=== PATIENT | female | born 1965 | race Caucasian/White ===

== ENCOUNTER 2017-08-24 11:43 | Outpatient (CLI) | payer OTHER ==
--- NOTE | 2017-08-25 19:08 | Mammography Report ---
DIGITAL SCREENING MAMMOGRAM: 08/24/2017 CLINICAL INDICATION: A 52-year-old for screening. COMPARISON: 10/2015, 10/2013, 09/2010. TECHNIQUE: Routine CC and MLO projections were obtained of the breasts as well as bilateral laterall y exaggerated craniocaudal views. FINDINGS: The breasts again demonstrate heterogeneously dense fibroglandular parenchyma bilaterally. Coarse and punctate, typically benign calcifications are present. No suspicious masses, clustered microcalcifications, or regions of architectural distortion are identified. IMPRESSION: BENIGN FINDINGS. RECOMMENDATION: Routine annual screening unless otherwise clinically indicated. BI-RADS category 2, benign findings. STANDARD QUALIFYING STATEMENTS 1. This examination was reviewed with the aid of Computer-Aided Detection (CAD). 2. A negative or benign imaging report should not delay biopsy if clinically suspicious findings are present. Consider surgical consultation if warranted. More than 5% of cancers are not identified by i maging. 3. Dense breasts may obscure an underlying neoplasm. JOB #: [id number] EXT JOB #:[id number]
== END 2017-08-24 11:44 | disposition home or self-care (01) ==
LOC: DI 11:43
PROVIDERS: ATTEND Physician Assistant Medical
DX: Z12.31 Encounter for screening mammogram for malignant neoplasm of breast (principal)
CPT/HCPCS: 77067

== ENCOUNTER 2017-12-10 09:52 | Outpatient (CLI) | payer BC ==
[~2017-12-10 09:52] MED LIST: GADOBUTROL 10 MMOL/10 ML VIAL ONE
[2017-12-10] MEDS ORDERED: GADOBUTROL 10 MMOL/10 ML VIAL IVP ONE (11:01)
--- NOTE | 2017-12-10 13:54 | MRI Report ---
EXAM: MRI BRAIN WITHOUT AND WITH CONTRAST EXAM DATE: 12/10/2017 11:12 AM. CLINICAL HISTORY: Headache, decreased balance. Dizziness. COMPARISON: None. TECHNIQUE: Multiplanar, multisequence T1-weighted and fluid-sensitive MR sequences of the brain were performed. Sequences optimized for routine evaluation. Other: None. IV Contrast: 10 cc Gadavist given .. Findings: Relevant images are indicated (image number, series number). There is no acute or subacute ischemic change in the brain. Gradient echo imaging unremarkable. There is no hemorrhage, mass or midline shift. Basal cisterns, bilateral IACs, bilateral Meckel's caves ar e clear. Orbital contents negative. Paranasal sinuses, mastoid air cells demonstrate no significant f luid signal. There are normal expected vascular flow voids of the major arteries and veins. There are no suspicious marrow lesions. Mild scattered periventricular, subcortical white matter disease inclu ding small white matter disease abutting right atrium. Mild asymmetrical prominence of the right temp oral horn. Postcontrast imaging demonstrates no abnormal enhancement of the brain, meninges. Extraocu lar muscles, optic nerves, orbital apex, optic chiasm negative. Pituitary, infundibulum, mid brain, c raniocervical junction, limited evaluation upper cervical cord negative. Bilateral temporal lobes including appearance of the amygdala, hippocampus, parahippocampal gyrus matt ears unremarkable. Limited evaluation suprahyoid neck is unremarkable. Impressions: 1. No acute or subacute ischemic change. 2. Mild scattered nonspecific white matter disease, could be related to reported history of headaches . Also consider manifestation of chronic small vessel ischemic disease, correlate with any risk facto rs for the development of white matter disease including any history of diabetes, hypertension, hyper cholesterolemia. Post contrast imaging negative. 3. Some mild asymmetrical prominence of the right temporal horn compared with left however coronal im aging demonstrates unremarkable appearance of the bilateral hippocampus. Correlate closely with neuro logical exam findings. [facility] Referring Provider Line: [phone] SITE ID: [id number]
== END 2017-12-10 09:53 | disposition home or self-care (01) ==
LOC: DI 09:52
PROVIDERS: ATTEND Physician Assistant Medical
DX: R51 Headache (principal); R90.82 White matter disease, unspecified
CPT/HCPCS: 70553; A9585

== ENCOUNTER 2018-06-15 07:20 | Outpatient (CLI) | payer BC ==
[2018-06-15] MEDS ORDERED: IOPAMIDOL-300 100 ML VIAL ONE (07:23)
[2018-06-15] MEDS ORDERED: IOPAMIDOL-300 100 ML VIAL IVP ONE (08:04)
--- NOTE | 2018-06-15 15:19 | CT Report ---
Procedure Date: 06/15/2018 Accession Number: [id number] / [id number] Procedure: CT - Sinuses CPT Code: FULL RESULT: EXAM: CT SINUS EXAM DATE: 06/15/2018 08:11 AM. HISTORY: Sinus infections. COMPARISONS: None. TECHNIQUE: Routine multi-axial CT imaging performed through the sinuses. Iodinated IV contrast: None. Reconstructions: Coronal. In accordance with CT protocol optimization, one or more of the following dose reduction techniques were utilized for this exam: automated exposure control, adjustment of mA and/or KV based on patient size, or use of iterative reconstructive technique. FINDINGS: RIGHT Frontal: Normal. Ethmoid: Normal. Maxillary: Normal. Sphenoid: Normal. Drainage Pathways: The frontal recess, ostiomeatal complex and sphenoethmoidal recess are patent and normal. LEFT Frontal: Normal. Ethmoid: Normal. Maxillary: Minimal thickening of the mucosa along the medial and inferior left maxillary sinus. Sphenoid: Normal. Drainage Pathways: The frontal recess, ostiomeatal complex and sphenoethmoidal recess are patent and normal. Nasal Cavity: Normal. No mass or significant anatomic abnormality evident. Osseous Structures: No acute fracture or bony lesion. Mary bullosa are seen within both middle turbinates. There are nearly paradoxical middle turbinates. Orbits: Unremarkable. Other: Included portions and intracranial structures are unremarkable. Airways are clear. IMPRESSION: 1. Minimal left maxillary sinus disease. [facility]
--- NOTE | 2018-06-16 09:28 | CT Report ---
Procedure Date: 06/15/2018 Accession Number: [id number] / [id number] Procedure: CT - Chest W/ CPT Code: FULL RESULT: EXAM: CT CHEST EXAM DATE: 06/15/2018 08:11 AM. CLINICAL HISTORY: Dyspnea on exertion. COMPARISONS: Chest x-ray from 03/30/2018 and 06/02/2016. TECHNIQUE: Routine helical CT imaging was performed through the chest. IV contrast: 80 cc of Isovue-300. Reconstructions: Coronal and sagittal. In accordance with CT protocol optimization, one or more of the following dose reduction techniques were utilized for this exam: automated exposure control, adjustment of mA and/or KV based on patient size, or use of iterative reconstructive technique. FINDINGS: Lungs/Pleura: Elevation of both hemidiaphragms/low lung volumes with right middle and right lower lobe opacities likely atelectasis. No endobronchial obstruction. No pneumothorax. No parenchymal cavities or pleural effusions. No evidence of interstitial lung disease. Mediastinum: Heart size is normal. Visualized thyroid gland is unremarkable. No enlarged mediastinal or hilar lymph nodes are identified. Small hiatal hernia. Thoracic aorta is normal in caliber. No aneurysm. Bones: Degenerative changes of the thoracic spine. Right mid lower thoracic kyphosis. No acute osseous abnormalities. No bony lesions are identified. Visualized Abdomen: Included portions of the liver, gallbladder, adrenals, spleen, pancreas and kidneys are unremarkable. Visualized portion of the stomach and bowel are unremarkable. Other: None. IMPRESSION: 1. Low lung volumes/elevation of both hemidiaphragms right greater than left with right middle and right lower lobe opacities likely atelectasis. 2. No evidence of interstitial lung disease. No consolidation. No vascular congestion. 3. No thoracic adenopathy. [facility]
== END 2018-06-15 07:21 | disposition home or self-care (01) ==
LOC: DI 07:20
PROVIDERS: ATTEND Physician Assistant Medical
DX: R06.00 Dyspnea, unspecified (principal); J98.6 Disorders of diaphragm; R91.8 Other nonspecific abnormal finding of lung field; J32.0 Chronic maxillary sinusitis
CPT/HCPCS: 70486; 71260; Q9967

== ENCOUNTER 2018-09-03 12:40 | Outpatient (CLI) | payer BC ==
--- NOTE | 2018-09-06 10:55 | Mammography Report ---
Reason: SCREENING MAMMO Procedure Date: 09/03/2018 Accession Number: [id number] / [id number] Procedure: STEFANI - Screening Mammo w/Galdino CPT Code: FULL RESULT: EXAM: Screening Mammo w/Galdino DATE: 09/03/2018 1:22 PM CLINICAL HISTORY: 53-year-old female since for screening mammogram TECHNIQUE: Bilateral CC and MLO views were obtained. COMPARISON: 08/24/2017, 10/12/2015, 10/12/2013, 09/24/2010. FINDINGS: The breasts demonstrate scattered fibroglandular densities bilaterally. Typically benign appearing lymph nodes are again seen. No suspicious masses, clustered microcalcifications, or regions of architectural distortion are identified. IMPRESSION: Benign findings RECOMMENDATION: Routine annual screening unless otherwise clinically indicated. BIRADS CATEGORY 2: Benign findings STANDARD QUALIFYING STATEMENTS: 1. This examination was not reviewed with the aid of Computer-Aided Detection (CAD). 2. A negative or benign imaging report should not delay biopsy if clinically suspicious findings are present. Consider surgical consultation if warrented. More than 5% of cancers are not identified by imaging. 3. Dense breasts may obscure an underlying neoplasm. 4. This examination was reviewed with the aid of 3D breast imaging (tomosynthesis).
== END 2018-09-03 12:41 | disposition home or self-care (01) ==
LOC: DI 12:40
DX: Z12.31 Encounter for screening mammogram for malignant neoplasm of breast (principal)
CPT/HCPCS: 77063; 77067

== ENCOUNTER 2018-10-25 14:31 | Outpatient (CLI) | payer BC | END 2018-10-25 14:32 | disposition home or self-care (01) | LOC: SC 14:31 | PROVIDERS: ATTEND Internal Medicine Pulmonary Disease | DX: R06.81 Apnea, not elsewhere classified (principal); G47.10 Hypersomnia, unspecified; R41.89 Other symptoms and signs involving cognitive functions and awareness; R06.83 Snoring; G47.8 Other sleep disorders; E66.9 Obesity, unspecified; Z68.38 Body mass index [BMI] 38.0-38.9, adult | CPT/HCPCS: 99203; 99212 ==

== ENCOUNTER 2018-11-07 19:30 | Outpatient (CLI) | payer BC | END 2018-11-07 23:59 | disposition home or self-care (01) | LOC: SC 19:30 | PROVIDERS: ATTEND Internal Medicine Pulmonary Disease | DX: G47.33 Obstructive sleep apnea (adult) (pediatric) (principal); R09.02 Hypoxemia | CPT/HCPCS: 95806 ==

== ENCOUNTER 2019-01-26 11:08 | Outpatient (CLI) | payer BC | END 2019-01-26 11:09 | disposition home or self-care (01) | LOC: SC 11:08 | PROVIDERS: ATTEND Nurse Practitioner Family | DX: G47.33 Obstructive sleep apnea (adult) (pediatric) (principal) | CPT/HCPCS: 99212; 99214 ==

== ENCOUNTER 2019-04-26 12:23 | Outpatient (CLI) | payer BC ==
[2019-04-26 19:04] LABS: BASOPHILS % (AUTO) 0.4 %; EOSINOPHILS # (AUTO) 0.1 10^3/uL (0.0-0.7); EOSINOPHILS % (AUTO) 1.1 %; HGB - HEMOGLOBIN 14.6 g/dL (12.0-16.0); LYMPHOCYTES # (AUTO) 1.7 10^3/uL (1.5-3.5); LYMPHOCYTES % (AUTO) 23.6 %; MEAN CORPUSCULAR HEMOGLOBIN 28.6 pg (27.0-31.0); MEAN CORPUSCULAR HGB CONC 29.8 g/dL (32.0-36.0); MEAN CORPUSCULAR VOLUME 95.9 fL (81.0-99.0); MEAN PLATELET VOLUME 10.1 fL (7.9-10.8); MONOCYTES # (AUTO) 0.5 10^3/uL (0.0-1.0); MONOCYTES % (AUTO) 6.6 %; NEUTROPHILS # (AUTO) 4.9 10^3/uL (1.5-6.6); PLT - PLATELET COUNT 268 10^3/uL (130-450); RED BLOOD COUNT 5.11 10^6/uL (4.20-5.40); RED CELL DISTRIBUTION WIDTH 14.4 % (12.0-15.0); WHITE BLOOD COUNT 7.2 x10^3/uL (4.8-10.8)
[2019-04-26 19:45] LABS: ALBUMIN/GLOBULIN RATIO 1.1 (1.0-2.2); BILIRUBIN,TOTAL 0.7 mg/dL (0.2-1.0); CALCIUM 9.4 mg/dL (8.5-10.3); CREATININE 0.6 mg/dL (0.4-1.0); TOTAL PROTEIN 7.5 g/dL (6.7-8.2)
== END 2019-04-26 12:24 | disposition home or self-care (01) ==
LOC: LAB.WCP 12:23
PROVIDERS: ATTEND Family Medicine
DX: I10 Essential (primary) hypertension (principal); F32.9 Major depressive disorder, single episode, unspecified
CPT/HCPCS: 36415; 80053; 84443; 85025

== ENCOUNTER 2019-07-04 10:38 | Outpatient (CLI) | payer BC ==
--- NOTE | 2019-07-05 10:23 | XRAY Report ---
Reason: RIGHT KNEE PAIN Procedure Date: 07/04/2019 Accession Number: [id number] / [id number] Procedure: WCP - Knee 3 View RT CPT Code: FULL RESULT: EXAM: RIGHT KNEE RADIOGRAPHY EXAM DATE: 07/04/2019 11:01 AM. CLINICAL HISTORY: Right knee pain. COMPARISON: None. TECHNIQUE: 3 views. FINDINGS: Bones: Mild osteophytic spurring at the medial and lateral tibial plateau. No fractures or bone lesions. Joints: Moderate narrowing of the knee joint space. No effusion. No subluxations. Soft Tissues: Normal. No soft tissue swelling. IMPRESSION: Moderate degenerative changes at the knee. No fracture detected. [facility]
== END 2019-07-04 23:59 | disposition home or self-care (01) ==
LOC: DI.WCP 10:38 → EDSTATUS 13:19 → DI.WCP 23:59
PROVIDERS: ATTEND Physician Assistant Medical
DX: M17.11 Unilateral primary osteoarthritis, right knee (principal)

== ENCOUNTER 2019-09-06 15:12 | Outpatient (CLI) | payer BC ==
--- NOTE | 2019-09-06 16:19 | Mammography Report ---
Reason: SCREENING MAMMO Procedure Date: 09/06/2019 Accession Number: [id number] / [id number] Procedure: STEFANI - Screening Mammo w/Galdino CPT Code: FULL RESULT: EXAM: Screening Mammo w/Galdino DATE: 09/06/2019 3:44 PM CLINICAL HISTORY: Routine screening TECHNIQUE: (B) - Bilateral CC and MLO views were obtained. COMPARISON: 09/03/2018, 08/24/2017, 10/12/2015, 10/12/2013, 09/24/2010 PARENCHYMAL PATTERN: (A) - The breasts demonstrate scattered fibroglandular densities bilaterally. FINDINGS: No significant interval change. There are no suspicious masses, calcifications, or areas of distortion. IMPRESSION: Negative examination. BI-RADS category 1. RECOMMENDATION: (ANNUAL) - Recommend routine annual screening mammography. BI-RADS CATEGORY: (1) - Negative. STANDARD QUALIFYING STATEMENTS: 1. This examination was not reviewed with the aid of Computer-Aided Detection (CAD). 2. A negative or benign imaging report should not preclude biopsy if clinically suspicious findings are present. 3. Dense breasts may obscure an underlying neoplasm. 4. This examination was reviewed with the aid of 3D breast imaging (tomosynthesis).
== END 2019-09-06 15:13 | disposition home or self-care (01) ==
LOC: DI 15:12
DX: Z12.31 Encounter for screening mammogram for malignant neoplasm of breast (principal)
CPT/HCPCS: 77063; 77067

== ENCOUNTER 2019-12-09 18:52 | Emergency (ER) | payer BC, OTHER ==
--- NOTE | 2019-12-09 20:01 | XRAY Report ---
Reason: trauma/pain Procedure Date: 12/09/2019 Accession Number: [id number] / [id number] Procedure: XR - Wrist 3 View RT CPT Code: Final Report FULL RESULT: EXAM: RIGHT WRIST RADIOGRAPHY EXAM DATE: 12/09/2019 07:37 PM. CLINICAL HISTORY: Trauma, pain. COMPARISON: None. TECHNIQUE: 3 views. FINDINGS: Bones: There is a comminuted fracture of the distal radius. This includes oblique, mildly impacted fracture of the distal radial metaphysis, as well as fracture component extending to the radial articular surface. No significant displacement is demonstrated. Joints: No dislocation or subluxation. Soft Tissues: There is mild soft tissue swelling. IMPRESSION: Mildly impacted, comminuted, intra-articular fracture of the distal radius. [facility]
--- NOTE | 2019-12-09 20:23 | ED Physician Documentation ---
PD HPI UPPER EXT INJURY - Stated complaint Stated Complaint: RT WRIST INJURY - Chief complaint Chief Complaint: Trauma Ext - History obtained from History obtained from: Patient - History of Present Illness Location: Right (Fall while running with her dog, isolated right wrist injury with moderate pain although declines pain medication initially. 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, Oophrectomy HEENT: Tonsil/Adenoidectomy - Present Medications Home Medications: Ambulatory Orders Medication Instructions Recorded Confirmed Hydrochlorothiazide 25 mg PO DAILY 09/27/14 06/03/16 Losartan [Cozaar] 12.5 mg PO DAILY 09/27/14 06/03/16 Ascorbic Acid [Vitamin C] 1 tab PO DAILY 06/03/16 06/03/16 B12/Levomefolate Calcium/B-6 1 tab PO DAILY 06/03/16 06/03/16 [Foltx Tablet] Calcium Citrate/Magnesium/D3 1 tab PO DAILY 06/03/16 06/03/16 [Calcium Citrate Chewable Wafer] Multivit with Calcium,Iron,Min 1 tab PO DAILY 06/03/16 06/03/16 [Multiple Vitamins For Women] Senna [Senokot] 1 tab PO DAILY 06/03/16 06/03/16 Hydrocodone/Acetaminophen 1 - 2 each PO Q6H PRN #10 tablet 12/09/19 [Hydrocodon-Acetaminophen 5-325] - Allergies Allergies/Adverse Reactions: Allergies Allergy/AdvReac Type Severity Reaction Status Date / Time No Known Drug Allergies Allergy Verified 12/09/19 19:04 PD ED PE NORMAL - Vitals Vital signs reviewed: Yes - General General: Alert and oriented X 3, No acute distress - Neck Neck: Supple, no meningeal sign, No bony TTP - Extremities Extremities: Other (Tender focally of the right distal radius with limited range of motion but normal neurovascular function in the hand.) - Neuro Neuro: Alert and oriented X 3, Normal speech Results - Vitals Vitals: Vital Signs - 24 hr 12/09/19 19:01 Temperature 36.2 C L Heart Rate 100 Respiratory 16 Rate Blood Pressure 155/90 H O2 Saturation 97 Oxygen O2 Source Room air - Rads (name of study) 3 views of the right wrist Radiology: EMP read contemporaneously (Impacted and comminuted but not angulated distal radius fracture) Procedures - Splint (location) Right upper extremity Splint applied by: Physician Type of splint: Fiberglass, Long arm, Sugar tong Other: Patient tolerated well, No complications, Neurovascular intact, Sling provided Departure - Departure Disposition: 01 Home, Self Care Clinical Impression: Distal radius fracture, right Qualifiers: Encounter type: initial encounter Fracture type: closed Fracture morphology: other intra-articular Qualified Code(s): S52.571A - Other intraarticular fracture of lower end of right radius, initial encounter for closed fracture Condition: Good Record reviewed to determine appropriate education?: Yes Instructions: ED Fx Forearm Radius Ulna Redu Requ Follow-Up: [facility] [Provider Group] - Within 1 week Prescriptions: Hydrocodone/Acetaminophen [Hydrocodon-Acetaminophen 5-325] 1 - 2 each PO Q6H PRN #10 tablet PRN Reason: pain Comments: Keep the splint on and dry, do not remove it. Return for new or worsening symptoms. Follow-up with the orthopedic surgeon within the week, call Thursday for an appointment. Do not drink or drive while taking narcotic pain medication. Note that many narcotic pain relievers also contain Tylenol/acetaminophen. Please ensure that your total dose of acetaminophen from all sources does not exceed 3 g (3000 mg) per day. You may get constipated while on this medication. Take a stool softener such as Colace twice a day while you are on it. Also add an aoon-uts-yawwmts laxative such as senna or MiraLAX on any day that you do not have a bowel movement. If you received a narcotic pain medication or sedative while in the emergency department, do not drive for the next 24 hours.
[2019-12-09] MEDS ORDERED: HYDROcod/ACET 5/325 Prepack 4 PO STA (20:27)
[2019-12-09 20:49] VITALS: BP 140/93
== END 2019-12-09 20:51 | disposition home or self-care (01) ==
LOC: ED 18:52
DX: S52.571A Other intraarticular fracture of lower end of right radius, initial encounter for closed fracture (principal); W18.39XA Other fall on same level, initial encounter; Y93.02 Activity, running; I10 Essential (primary) hypertension
CPT/HCPCS: 29105

== ENCOUNTER 2019-12-21 22:05 | Outpatient (CLI) | payer OTHER | END 2019-12-21 22:06 | disposition critical access hospital (66) | LOC: EMS 22:05 | PROVIDERS: ATTEND Surgery | DX: R40.20 Unspecified coma (principal) | CPT/HCPCS: A0425; A0433 ==

== ENCOUNTER 2019-12-21 22:16 | Inpatient (IN) | payer OTHER ==
--- NOTE | 2019-12-21 22:15 | ED Physician Documentation ---
History of Present Illness - Stated complaint Stated Complaint: UNRESPONSIVE - History obtained from History obtained from: EMS (ems reports patient is 54 y/o f post op today from right wrist surgery. found her slumped over on recliner, ems states pinpoint pupils w agonal breathing gave 4mg narcan and intubated patient with 7.5 ETT via DL. EMS reports she had pulses entire time. remainder of history is unknown. ems reports she was given, succ for intubation and prior to arrival was given vecuronium.) Review of Systems Unable to obtain: Unresponsive, Intubated PD PAST MEDICAL HISTORY - Present Medications Home Medications: Ambulatory Orders Medication Instructions Recorded Confirmed Hydrochlorothiazide 25 mg PO DAILY 09/27/14 06/03/16 Losartan [Cozaar] 12.5 mg PO DAILY 09/27/14 06/03/16 Ascorbic Acid [Vitamin C] 1 tab PO DAILY 06/03/16 06/03/16 B12/Levomefolate Calcium/B-6 1 tab PO DAILY 06/03/16 06/03/16 [Foltx Tablet] Calcium Citrate/Magnesium/D3 1 tab PO DAILY 06/03/16 06/03/16 [Calcium Citrate Chewable Wafer] Multivit with Calcium,Iron,Min 1 tab PO DAILY 06/03/16 06/03/16 [Multiple Vitamins For Women] Senna [Senokot] 1 tab PO DAILY 06/03/16 06/03/16 Hydrocodone/Acetaminophen 1 - 2 each PO Q6H PRN #10 tablet 12/09/19 [Hydrocodon-Acetaminophen 5-325] - Allergies Allergies/Adverse Reactions: Allergies Allergy/AdvReac Type Severity Reaction Status Date / Time No Known Drug Allergies Allergy Verified 12/09/19 19:04 PD ED PE NORMAL - Vitals Vital signs reviewed: Yes - General General: Other (intubated, no signs of trauma. ) - HEENT HEENT: Atraumatic, Other (pupils are 4mm b/l and sluggish. 7.5 ETT 24 CM at the teeth.) - Neck Neck: Other (trachea midline, no jvd, no carotid bruits.) - Cardiac Cardiac: RRR, No murmur, Strong equal pulses - Respiratory Respiratory: Other (breath sounds present bilaterally with mech ventilation) - Abdomen Abdomen: Normal bowel sounds, Soft, Non tender, Non distended - Derm Derm: Normal color, No rash, Other (right hand and wrist with splint/cast in place, compartments soft.) - Extremities Extremities: No deformity - Neuro Neuro: Other (paitent received non depolarizing paralytic prior to my exam so patients neuro exam is unreliable at this time. ) - Psych Psych: Normal mood, Normal affect Results - Vitals Vitals: Vital Signs - 24 hr 12/21/19 12/21/19 12/21/19 22:05 22:20 22:27 Temperature 36.1 C L Heart Rate 90 Respiratory 14 Rate Blood Pressure 70/52 L O2 Saturation 100 12/21/19 12/21/19 12/21/19 22:34 22:36 23:27 Temperature Heart Rate 90 91 89 Respiratory 16 16 Rate Blood Pressure 90/72 115/56 L O2 Saturation 100 12/21/19 12/21/19 12/21/19 23:29 23:34 23:38 Temperature Heart Rate 90 88 87 Respiratory 16 16 Rate Blood Pressure 137/97 H 132/96 H O2 Saturation 100 Oxygen O2 Source Mechanical ventilator - EKG (time done) 22:35 Rate: Rate (enter#) (88), Other (no STEMI) Rhythm: NSR Narvon: Normal Intervals: Prolonged QT - Labs Labs: Laboratory Tests 12/21/19 12/21/19 12/21/19 22:26 22:26 22:26 WBC 7.2 RBC 4.80 Hgb 13.2 Hct 45.1 MCV 94.0 MCH 27.5 MCHC 29.3 L RDW 14.0 Plt Count 214 MPV 10.0 Neut # (Auto) 6.4 Lymph # (Auto) 0.5 L Metcalfe # (Auto) 0.1 Eos # (Auto) 0.2 Baso # (Auto) 0.0 Absolute Nucleated RBC 0.00 Nucleated RBC % 0.0 PT 13.0 H INR 1.2 APTT 27.0 Bld Gas Analysis Time Sample Site ABG pH ABG pCO2 ABG pO2 ABG HCO3 ABG Total CO2 ABG O2 Saturation ABG Base Excess Omer Test Respiration Rate O2 Delivery Device Vent Mode FiO2 Tidal Volume PEEP Pressure Support Vent Sodium 136 Potassium 4.5 Chloride 97 L Carbon Dioxide 23 Anion Gap 16.0 H BUN 21 H Creatinine 0.9 Estimated GFR (MDRD) 65 L Glucose 387 H Lactic Acid Calcium 8.6 Phosphorus 8.3 H Magnesium 2.1 Total Creatine Kinase 68 Troponin I High Sens B-Natriuretic Peptide TSH Urine Color Urine Clarity Urine pH Ur Specific [place] Urine Protein Urine Glucose (UA) Urine Ketones Urine Occult Blood Urine Nitrite Urine Bilirubin Urine Urobilinogen Ur Leukocyte Esterase Ur Microscopic Review Urine Culture Comments Urine HCG, Qual Salicylates < 6.0 Acetaminophen < 10 L Ethyl Alcohol < 5.0 Serum Ketones NEGATIVE 12/21/19 12/21/19 12/21/19 22:26 22:26 22:26 WBC RBC Hgb Hct MCV MCH MCHC RDW Plt Count MPV Neut # (Auto) Lymph # (Auto) Metcalfe # (Auto) Eos # (Auto) Baso # (Auto) Absolute Nucleated RBC Nucleated RBC % PT INR APTT Bld Gas Analysis Time Sample Site ABG pH ABG pCO2 ABG pO2 ABG HCO3 ABG Total CO2 ABG O2 Saturation ABG Base Excess Omer Test Respiration Rate O2 Delivery Device Vent Mode FiO2 Tidal Volume PEEP Pressure Support Vent Sodium Potassium Chloride Carbon Dioxide Anion Gap BUN Creatinine Estimated GFR (MDRD) Glucose Lactic Acid 5.6 H* Calcium Phosphorus Magnesium Total Creatine Kinase Troponin I High Sens B-Natriuretic Peptide 25 TSH 1.31 Urine Color Urine Clarity Urine pH Ur Specific [place] Urine Protein Urine Glucose (UA) Urine Ketones Urine Occult Blood Urine Nitrite Urine Bilirubin Urine Urobilinogen Ur Leukocyte Esterase Ur Microscopic Review Urine Culture Comments Urine HCG, Qual Salicylates Acetaminophen Ethyl Alcohol Serum Ketones 12/21/19 12/21/19 12/21/19 22:26 23:15 23:38 WBC RBC Hgb Hct MCV MCH MCHC RDW Plt Count MPV Neut # (Auto) Lymph # (Auto) Metcalfe # (Auto) Eos # (Auto) Baso # (Auto) Absolute Nucleated RBC Nucleated RBC % PT INR APTT Bld Gas Analysis Time 2326 Sample Site LEFT RADIAL ABG pH 7.40 ABG pCO2 37 ABG pO2 110 H ABG HCO3 22.3 ABG Total CO2 23.4 ABG O2 Saturation 98 ABG Base Excess -2.0 Omer Test POSITIVE Respiration Rate 16 O2 Delivery Device VENTILATOR Vent Mode SIMV FiO2 50.00 Tidal Volume 500 PEEP 5 Pressure Support Vent 10 Sodium Potassium Chloride Carbon Dioxide Anion Gap BUN Creatinine Estimated GFR (MDRD) Glucose Lactic Acid Calcium Phosphorus Magnesium Total Creatine Kinase Troponin I High Sens 5.7 B-Natriuretic Peptide TSH Urine Color YELLOW Urine Clarity CLEAR Urine pH 6.0 Ur Specific [place] 1.025 Urine Protein 30 H Urine Glucose (UA) 250 H Urine Ketones 15 H Urine Occult Blood NEGATIVE Urine Nitrite NEGATIVE Urine Bilirubin NEGATIVE Urine Urobilinogen 0.2 (NORMAL) Ur Leukocyte Esterase NEGATIVE Ur Microscopic Review INDICATED Urine Culture Comments Not Reportable Urine HCG, Qual NEGATIVE Salicylates Acetaminophen Ethyl Alcohol Serum Ketones PD MEDICAL DECISION MAKING - ED course Complexity details: other (patient found unresponsive with pulses and NSR given narcan and intubated post op ddx would include PE, Sepsis, Fat embolism, ICH, hypo hyperglycemia. ) - Consults Consults: Consulted (name) (00:04 case d/w hospitalist. Will admit to ICU. ) - Critical Care Time(min): 30 Time Includes: Direct patient care, Review records, Reassess patient, Document care, Coordinate care, Medical consult Data interpretation: Labs, Pulse ox, ABG, CXR, Prior EKG Procedures included in critical care time: Peripheral IV, Gastric intubation, Ventilator mgmt Procedures excluded from critical care time: EKG Departure - Departure Disposition: 66 [facility] DC/Xfer Clinical Impression: Respiratory failure Qualifiers: Chronicity: unspecified Respiratory failure complication: hypoxia Qualified Code(s): J96.91 - Respiratory failure, unspecified with hypoxia Condition: Critical
[2019-12-21] MEDS ORDERED: cefTRIAXone 1 GM in SODIUM CHLORIDE 0.9% MINIBAG 100 ML IV STA (22:25)
[2019-12-21] MEDS ORDERED: SODIUM CHLORIDE 0.9% 1,000 ML IV ONE (22:25)
[2019-12-21] MEDS ORDERED: PROPOFOL 1000 MG/100 ML 100 ML IV STA (22:26)
[2019-12-21] MEDS ORDERED: IOVERSOL 320 100 ML VIAL IVP ONE ×2 (22:34→23:08)
[2019-12-21 22:40] LABS: BASOPHILS % (AUTO) 0.3 %; EOSINOPHILS # (AUTO) 0.2 10^3/uL (0.0-0.7); EOSINOPHILS % (AUTO) 3.2 %; HGB - HEMOGLOBIN 13.2 g/dL (12.0-16.0); LYMPHOCYTES # (AUTO) 0.5 10^3/uL (1.5-3.5); LYMPHOCYTES % (AUTO) 6.2 %; MEAN CORPUSCULAR HEMOGLOBIN 27.5 pg (27.0-31.0); MEAN CORPUSCULAR HGB CONC 29.3 g/dL (32.0-36.0); MONOCYTES # (AUTO) 0.1 10^3/uL (0.0-1.0); MONOCYTES % (AUTO) 0.7 %; NEUTROPHILS # (AUTO) 6.4 10^3/uL (1.5-6.6); NEUTROPHILS % (AUTO) 88.5 %; PLT - PLATELET COUNT 214 10^3/uL (130-450); WHITE BLOOD COUNT 7.2 x10^3/uL (4.8-10.8)
[2019-12-21 22:48] LABS: KETONES, SERUM (ACETEST) NEGATIVE (NEGATIVE)
[2019-12-21 22:52] LABS: ACETAMINOPHEN < 10 ug/mL (10-30); BUN - BLOOD UREA NITROGEN 21 mg/dL (6-20); CALCIUM 8.6 mg/dL (8.5-10.3); CARBON DIOXIDE - CO2 23 mmol/L (21-32); CHLORIDE 97 mmol/L (101-111); CK- CREATINE KINASE 68 IU/L (22-269); CREATININE 0.9 mg/dL (0.4-1.0); GFR - MDRD 65 (>89); GLUCOSE 387 mg/dL (70-100); MAGNESIUM 2.1 mg/dL (1.7-2.8); PHOSPHORUS 8.3 mg/dL (2.5-4.6); SALICYLATE < 6.0 mg/dL; SODIUM 136 mmol/L (135-145)
--- NOTE | 2019-12-21 22:56 | XRAY Report ---
Reason: post intubation Procedure Date: 12/21/2019 Accession Number: [id number] / [id number] Procedure: XR - Chest for Line Placement CPT Code: Final Report FULL RESULT: EXAM: CHEST RADIOGRAPHY EXAM DATE: 12/21/2019 10:41 PM. CLINICAL HISTORY: Post intubation. COMPARISON: CHEST 2 VIEW PA/LAT 06/02/2016 11:58 AM. TECHNIQUE: 1 view. FINDINGS/ IMPRESSION: 1. The lungs are markedly hypoventilatory with compressive changes. 2. The endotracheal tube terminates at or just above the terell, recommend retracting 2.5 cm for more appropriate positioning. 3. No clinically significant pneumothorax identified. 4. Bilateral opacities may represent compressive atelectasis or infiltrate. 5. No significant pleural effusion. 6. The heart is normal size. 7. No suspicious osseous lesion. [facility] The call report notification system was initiated by Dr. Tesfaye Perry at 10:51 PM on 12/21/2019. The above call report findings were discussed with Maxim Aguirre by Dr. Tesfaye Perry at 10:53 PM on 12/21/2019.
[2019-12-21 23:05] LABS: INR 1.2 (0.8-1.2)
[2019-12-21 23:26] LABS: ABG HCO3 22.3 mmol/L (22.0-26.0); ABG OXYGEN SATURATION 98 % (94-98); ABG PCO2 37 mmHg (34-45); ABG PO2 110 mmHg (80-100); ABG TCO2 23.4 MMOL/L (21.0-29.0); ALLEN TEST POSITIVE
--- NOTE | 2019-12-21 23:29 | CT Report ---
Reason: post op unresponsive Procedure Date: 12/21/2019 Accession Number: [id number] / [id number] Procedure: CT - HEAD WO CPT Code: Final Report FULL RESULT: EXAM: CT HEAD EXAM DATE: 12/21/2019 10:55 PM. CLINICAL HISTORY: Post op unresponsive. COMPARISON: SINUSES 06/15/2018 7:52 AM BRAIN W/WO 12/10/2017 10:00 AM. TECHNIQUE: Multiaxial CT images were obtained from the foramen magnum to the vertex. Reformats: Sagittal and coronal. IV contrast: None. In accordance with CT protocol optimization, one or more of the following dose reduction techniques were utilized for this exam: automated exposure control, adjustment of mA and/or KV based on patient size, or use of iterative reconstructive technique. F FINDINGS: Parenchyma: No intraparenchymal hemorrhage. No evidence of mass, midline shift or CT findings of acute infarction. Bruno-white differentiation is distinct. Diffuse mild chronic microangiopathic white matter changes are evident. Extraaxial Spaces: Normal for age. No subdural or epidural collections identified. Ventricles: The ventricles and cortical sulci are enlarged, consistent with age-related tissue loss. Sinuses: Imaged paranasal sinuses, orbits, and mastoids show no significant abnormality. Bones: No evidence of fracture or calvarial defect. Other: None. IMPRESSION: Mild senescent changes without evidence of acute intracranial abnormality. RADIA
--- NOTE | 2019-12-21 23:44 | CT Report ---
Reason: unresponsive post op Procedure Date: 12/21/2019 Accession Number: [id number] / [id number] Procedure: CT - ANGIO CHEST W/WO CPT Code: Final Report FULL RESULT: EXAM: CT ANGIOGRAM CHEST EXAM DATE: 12/21/2019 11:11 PM. CLINICAL HISTORY: Unresponsive postoperatively. COMPARISON: CHEST W/ 06/15/2018 8:03 AM CHEST 1 VIEW 12/21/2019 10:19 PM. TECHNIQUE: Routine helical imaging was performed through the chest in the pulmonary arterial phase. IV Contrast: OPTIRAY 320. Reconstructions: Coronal 3-D MIP reconstructions. Sagittal and coronal. In accordance with CT protocol optimization, one or more of the following dose reduction techniques were utilized for this exam: automated exposure control, adjustment of mA and/or KV based on patient size, or use of iterative reconstructive technique. FINDINGS: Pulmonary Arteries: Diagnostic quality: Suboptimal through the segmental arteries. Images are degraded due to small lung volumes and streak artifact. No pulmonary emboli seen. Lungs/Pleura: Possible pulmonary vascular congestion. Bibasilar atelectasis or infiltrate. Trace pleural effusions. No pneumothorax. Mediastinum: Heart size upper normal. Thoracic Aorta: Unremarkable. Upper Abdomen: Possible fatty liver. Other: Degenerative changes in the spine. Endotracheal tube tip at the terell, directed toward the right mainstem bronchus. IMPRESSION: 1. Images are somewhat degraded due to technical factors. No pulmonary emboli seen. 2. ETT at the terell, directed toward the right mainstem bronchus. 3. Possible pulmonary vascular congestion with bibasilar atelectasis or infiltrate and trace pleural effusions. 4. Possible fatty liver. RADIA
--- NOTE | 2019-12-21 23:53 | XRAY Report ---
Reason: ET TUBE REPOSITION Procedure Date: 12/21/2019 Accession Number: [id number] / [id number] Procedure: XR - Chest 1 View X-Ray CPT Code: 10716 Final Report FULL RESULT: EXAM: CHEST RADIOGRAPHY EXAM DATE: 12/21/2019 11:35 PM. CLINICAL HISTORY: ET TUBE REPOSITION. COMPARISON: CHEST 1 VIEW 12/21/2019 10:19 PM CHEST ANGIO 12/21/2019 10:54 PM. TECHNIQUE: 1 view. FINDINGS: Lines and tubes: Tip of endotracheal tube terminates approximately 2.2 cm above the terell. Gastric suction tube terminates in the fundus of the stomach. Lungs/Pleura: Significantly low lung volume bilaterally accentuating the bronchovascular markings and associated compressive atelectasis in the bilateral lower lobes. Mediastinum: Heart likely within normal limits given technique and low lung volumes. Osseous structures: No significant focal osseous lesions. IMPRESSION: 1. Lines and tubes as above. 2. Significantly low lung volumes bilaterally accentuating the bronchovascular markings and associated with compressive atelectasis in the bilateral lower lobes. RADIA
[2019-12-21 23:56] LABS: MUDS CUTOFF CONCENTRATIONS CUTOFF CONC BELOW:
[2019-12-21 23:58] LABS: BILIRUBIN,URINE NEGATIVE (NEGATIVE); GLUCOSE, URINE (UA) 250 mg/dL (NEGATIVE); KETONES,URINE (UA) 15 mg/dL (NEGATIVE); LEUKOCYTE ESTERASE, URINE NEGATIVE (NEGATIVE); NITRITE,URINE NEGATIVE (NEGATIVE); OCCULT BLOOD,URINE NEGATIVE (NEGATIVE); PROTEIN,URINE 30 mg/dL (NEGATIVE); UROBILINOGEN,URINE 0.2 (NORMAL) E.U./dL (NORMAL)
[2019-12-21 23:59] LABS: CLARITY,URINE CLEAR (CLEAR); HCG UR QUAL NEGATIVE
[2019-12-22 00:05] LABS: BACTERIA,URINE Rare /HPF (None Seen); CASTS, URINE 3-5 Fine Granular /LPF; MUCUS,URINE Few Strands; RBC,URINE 0-5 /HPF (0-5); SQUAMOUS EPITHELIAL CELL,UR RARE Squamous (<= Few)
[2019-12-22 00:09] LABS: AMPHETAMINE SCREEN,URINE NEGATIVE (NEGATIVE); BENZODIAZEPINES SCREEN, URINE NEGATIVE (NEGATIVE); COCAINE SCREEN URINE NEGATIVE (NEGATIVE); METHADONE SCREEN, URINE NEGATIVE (NEGATIVE); METHAMPHETAMINES SCREEN, URINE NEGATIVE (NEGATIVE); OPIATE SCREEN, URINE NEGATIVE (NEGATIVE); OXYCODONE SCREEN, URINE POSITIVE (NEGATIVE); PROPOXYPHENE SCREEN, URINE NEGATIVE (NEGATIVE); TRICYCLIC ANTIDEPRESSANT,URINE NEGATIVE (NEGATIVE)
[2019-12-22] MEDS ORDERED: SODIUM CHLORIDE FLUSH 0.9% 10 ML SYRINGE IVP PRN (00:21)
--- NOTE | 2019-12-22 00:33 | HISTORY & PHYSICAL EXAMINATION ---
Chief Complaint - Chief Complaint Chief Complaint: unresponsive History of Present Illness - Admitted From Admitted From:: [facility] - History Obtained From Records Reviewed: yes History obtained from: patient's Exam Limitations: patient sedated and intubated - History of Present Illness HPI Comment/Other: Patient is a 54 y/o female who presented to the ED via EMS intubated in the field. She had surgery for a right wrist fracture in [facility]. She went in around 3:30pm and came out around 5:00pm. She was given 2 pain pills prior to discharge. She was driven home by her . She had 2/3 of a steak, potato and robert salad dinner. Then laid in recliner. Around 9:15pm, tried to get he up to go to bed and noticed she was unresponsive. She did not have any response to sterna radha. He called 911. Patient was given 4mg of narcan with minimal response. She was given rocuronium in the field and intubated As a result of the above she was presented for admission. She had a blood glucose 0f 387 and a lactic acid of 5.6. Her reports that she has been on a keto diet for a while now and the potato was the only significant carb she has had in a while. History - Past Medical History Cardiovascular: reports: Hypertension Respiratory: reports: None Endocrine/Autoimmune: reports: None GI: reports: Chronic constipation : reports: None HEENT: reports: None Psych: reports: Depression Musculoskeletal: reports: None Derm: reports: None MRSA Hx?: No - Past Surgical History General: reports: Colonoscopy Ortho: reports: Other /FOOD BEVERAGE MANAGER: reports: section, Oophrectomy HEENT: reports: Tonsil/Adenoidectomy - Family & Social History Family History Comment/Other: denies knowledge of any significant family history Living arrangement: At home Living Situation: With spouse/s.o. Social History Notes: Does not smoke or use any illicit drug. Rarely drinks alcohol. - POLST Patient has POLST: No POLST Status: Full Code Meds/Allgy - Home Medications Home Medications: Ambulatory Orders Medication Instructions Recorded Confirmed Hydrochlorothiazide 25 mg PO DAILY 09/27/14 06/03/16 Losartan [Cozaar] 12.5 mg PO DAILY 09/27/14 06/03/16 Ascorbic Acid [Vitamin C] 1 tab PO DAILY 06/03/16 06/03/16 B12/Levomefolate Calcium/B-6 1 tab PO DAILY 06/03/16 06/03/16 [Foltx Tablet] Calcium Citrate/Magnesium/D3 1 tab PO DAILY 06/03/16 06/03/16 [Calcium Citrate Chewable Wafer] Multivit with Calcium,Iron,Min 1 tab PO DAILY 06/03/16 06/03/16 [Multiple Vitamins For Women] Senna [Senokot] 1 tab PO DAILY 06/03/16 06/03/16 Hydrocodone/Acetaminophen 1 - 2 each PO Q6H PRN #10 tablet 12/09/19 [Hydrocodon-Acetaminophen 5-325] - Allergies Allergies/Adverse Reactions: Allergies Allergy/AdvReac Type Severity Reaction Status Date / Time No Known Drug Allergies Allergy Verified 12/09/19 19:04 Review of Systems - Other Findings Other Findings: ROS is limited because patient is currently sedated and intubated Prior Level of Functionality: She is otherwise independent of activities of daily living Exam - Vital Signs Vital Signs: Vital Signs x48h Temp Pulse Resp BP Pulse Ox 12/22/19 00:17 66 16 128/86 H 99 12/22/19 00:10 71 16 143/96 H 100 12/22/19 00:01 90 12/21/19 23:38 87 16 132/96 H 100 12/21/19 23:34 88 12/21/19 23:29 90 16 137/97 H 12/21/19 23:27 89 16 115/56 L 12/21/19 22:36 91 16 90/72 100 12/21/19 22:34 90 12/21/19 22:27 70/52 L 12/21/19 22:20 90 14 100 12/21/19 22:05 36.1 C L - Physical Exam General Appearance: positive: Other (Sedated and intubated) Eyes Bilateral: positive: Other (pinpoint but reactive to light) ENT: positive: Dry mucous membranes Neck: positive: Nml inspection, No JVD, Trachea midline Respiratory: positive: Breath sounds nml. negative: Wheezes, Rales, Rhonchi Cardiovascular: positive: Regular rate & rhythm, No murmur Abdomen: positive: Non-tender, No organomegaly, Nml bowel sounds, No distention, Tenderness. negative: Guarding, Rebound Back: positive: Nml inspection Skin: positive: Color nml, No rash, Warm, Dry Extremities: positive: Non-tender, Full ROM, Nml appearance, No pedal edema Neurologic/Psychiatric: positive: Other (Sedated and intubated) Conclusion/Plan - Problem List (1) Opiate overdose Conclusion/Plan: s/p surgery Medication or dose unknown as this was administered at an outside surgical facility Patient currently sedated and intubated Anticipate weaning off vent in the course of the day as opiate wanes Qualifiers: Encounter type: initial encounter Injury intent: accidental or unintentional Qualified Code(s): T40.601A - Poisoning by unspecified na rcotics, accidental (unintentional), initial encounter (2) Acute respiratory failure Conclusion/Plan: 2/2 Unintentional opiate overdose Patient sedated and intubates Re-check ABG in the am. Attempt weaning trial later in the morning (3) Hypertension Conclusion/Plan: Will resume HCTZ and losartan when possible - Lab Results Fish Bones: 12/21/19 22:26 12/21/19 22:26 Core Measures - Anticipated LOS I expect patient to be DC'd or transferred within 96 hours.: Yes - DVT/VTE - Prophylaxis VTE/DVT Device ordered at admit?: Yes VTE/DVT Prophylaxis med ordered at admit?: Yes
[2019-12-22] MEDS: PROPOFOL 1000 MG/100 ML 100 ML IV SCH ×2 (02:03→04:58)
[2019-12-22] MEDS: SODIUM CHLORIDE FLUSH 0.9% 10 ML SYRINGE IVP SCH ×3 (02:04→17:00)
[2019-12-22] MEDS: SODIUM CHLORIDE 0.9% 1,000 ML IV SCH ×2 (02:04→11:30)
[2019-12-22 05:43] LABS: BASOPHILS % (AUTO) 0.2 %; HGB - HEMOGLOBIN 13.1 g/dL (12.0-16.0); LYMPHOCYTES # (AUTO) 0.8 10^3/uL (1.5-3.5); MEAN CORPUSCULAR HEMOGLOBIN 28.4 pg (27.0-31.0); MEAN CORPUSCULAR HGB CONC 30.5 g/dL (32.0-36.0); MEAN CORPUSCULAR VOLUME 93.3 fL (81.0-99.0); MEAN PLATELET VOLUME 10.1 fL (7.9-10.8); MONOCYTES # (AUTO) 0.4 10^3/uL (0.0-1.0); MONOCYTES % (AUTO) 3.4 %; NEUTROPHILS # (AUTO) 9.7 10^3/uL (1.5-6.6); NEUTROPHILS % (AUTO) 88.9 %; PLT - PLATELET COUNT 186 10^3/uL (130-450); RED BLOOD COUNT 4.61 10^6/uL (4.20-5.40); RED CELL DISTRIBUTION WIDTH 13.9 % (12.0-15.0); WHITE BLOOD COUNT 10.9 x10^3/uL (4.8-10.8)
[2019-12-22 05:49] LABS: CALCIUM 8.4 mg/dL (8.5-10.3); CREATININE 0.3 mg/dL (0.4-1.0)
[2019-12-22 06:10] LABS: ABG BASE EXCESS -0.3 mmol/L (-2.0-3.0); ABG OXYGEN SATURATION 97 % (94-98); ABG PCO2 38 mmHg (34-45); ABG PH 7.42 (7.35-7.45); ABG PO2 96 mmHg (80-100); ABG TCO2 25.2 MMOL/L (21.0-29.0); ALLEN TEST POSITIVE
[2019-12-22] MEDS ORDERED: HEPARIN 5,000 UNIT/ML VIAL SUBQ SCH (09:00)
[2019-12-22 09:05] LABS: HB2 TOTAL 13.4 g/dL; HEMOGLOBIN A1C 0.59 g/dL; HEMOGLOBIN A1C % 6.2 % (4.6-6.2)
[2019-12-22] MEDS ORDERED: BENZOCAINE/MENTHOL LOZENGE MM PRN (10:43)
[2019-12-22] MEDS ORDERED: ethyl alcohoL 62% SWAB AMPULE NAS SCH (11:00)
[2019-12-22] MEDS: ACETAMINOPHEN 325 MG TABLET PO PRN ×2 (11:37→15:28)
--- NOTE | 2019-12-22 12:41 | PHARMACY PROGRESS NOTE ---
- Best Possible Medication History Admit Date and Time: 12/22/19 0021 Processed by: Pharmacy Medication History completed: Yes Patient Interview: Pt unable to participate Secondary Source(s): Physician records, Pharmacy records, Insurance records As the person ultimately responsible for medication therapy, providers are able to order a medication from an existing home medication list in [facility] via the "Reconcile Routine" prior to Confirmation of that medication by director decision support. Such practice is discouraged except when the physician, in their clinical judgment, deems that a medical need exists for a medication without regard to previous use.
[2019-12-22 15:32] LABS: ALBUMIN 3.5 g/dL (3.2-5.5); ALBUMIN/GLOBULIN RATIO 1.2 (1.0-2.2); BILIRUBIN,TOTAL 0.3 mg/dL (0.2-1.0); CALCIUM 8.5 mg/dL (8.5-10.3); CREATININE 0.6 mg/dL (0.4-1.0); TOTAL PROTEIN 6.4 g/dL (6.7-8.2)
--- NOTE | 2019-12-22 16:27 | Discharge Plan ---
Discharge Plan Problem Reviewed?: Yes Disposition: Home, Self Care Condition: Stable Diet: Regular Activity Restrictions: Activity as Tolerated Shower Restrictions: No Driving Restrictions: Yes (Get clearance from your surgeon or your PCP to resume driving) Health Concerns: You were admitted because of respiratory arrest secondary to oxycodone overdose (given as Percocet) which you had received postop for pain control at another surgical facility. You were successfully taken off the ventilator. Your blood pressure remained low and you have needed rehydration via IV and orally. You may restart Losartan tomorrow but do NOT resume your HCTZ medication until you are seen by your PCP in follow-up, because of your low blood pressure. Stay well-hydrated and rest at home, undertake only light activity. Do not take any codeine-like products which caused you excessive sedation. Plan of Treatment: You may restart Losartan tomorrow but remain off the HCTZ medication, stay well- hydrated, see PCP for hospital follow-up and follow directions from the surgeon that performed the wrist operation. Care Goals: Improvement in symptoms and stabilization are the goals. Assessment: The patient and understand, the was given the instructions. No Smoking: If you smoke, Please STOP! Call for help. Follow-up with: Lisa Parada PA-C [Primary Care Provider] -
--- NOTE | 2019-12-22 17:01 | DISCHARGE SUMMARY ---
Discharge Summary Admit Date: 12/22/19 Discharge Date: 12/22/19 Discharging Provider: Cynhtia Ramon MD Primary Care Provider: JENNIFER Sanchez Code Status: Attempt Resuscitation Condition at Discharge: Stable Discharge Disposition: 01 Home, Self Care - DIAGNOSES Admission Diagnoses: (1) Opiate overdose (2) Acute respiratory failure (3) Hx of hypertension Discharge Diagnoses with Status of Each Condition: See below - HPI History of Present Illness: From the admission H&P of Dr Andry Max: Patient is a 54 y/o white female who presented to the ED via EMS intubated in the field. She had surgery for a right wrist fracture done in [facility] earlier the same day. She went in around 3:30pm and came out around 5:00pm. She was given 2 pain pills of Percocet, unknown dose, prior to discharge. She was driven home by her , was able to eat 2/3 of a steak, potato and robert salad for dinner. Then she laid to rest in recliner. Around 9:15pm, tried to get her up to go to bed and noticed she was unresponsive. She did not have any response to sternal rub. He called 911. Patient was given Narcan with minimal response. She was then given rocuronium in the field and intubated. As a result of the above she was presentedto the ER for admission into the ICU, intubated. She had a blood glucose 0f 387 and a lactic acid of 5.6. Her reports that she has been on a keto diet for about 2 mos and the potato was the only significant carb she has had in a while. Her urine toxicology screen was (+) for oxycodone, (-) for opiates. Her electrolytes, WBC, serum pH and her urinalysis were normal. - HOSPITAL COURSE Hospital Course: (1) Opiate overdose The was able to confirm, from speaking with staff at the [facility] facility, that the patient had received 2 tablets of Percocet 5/325 mg dose at 1705 and she was discharged at 1730. This led to excessive sedation and obtundation. After extubation off the ventilator here, she was groggy and wanted to sleep, but was able to eat, speak, walk to the bathroom. She was advised not to use codeine or sedatives, at the time of discharge. (2) Acute respiratory failure This was secondary to unintentional opiate overdose, given in the form of codeine in Percocet. She required ventilator support for several hours, then sedation was weaned and vent settings were weaned and she was extubated. She did describe throat and jaw pain from 2 separate intubations done within 24 hours, and was treated with topical spray. (3) Hypotension After extubation, her exam was consistent with dehydration with dry mucosa, elevated BUN/creatinine ratio (22/0.6) and low blood pressures (99-107 systolic) despite getting none of her blood pressure medications that next morning. She received IV saline at 100 cc an hour for a day. She was able to arise and move without dizziness or orthostasis and was deemed safe for discharge. The discharge orders advised her to resume her Losartan the next day but no HCTZ, to stay well-hydrated, to have light activity, to see her PCP for follow-up to okay when all her BP meds should be resumed. (4) Hx Hypertension We could not resume HCTZ and Losartan due to low BP. (5) MRSA carrier Her nares MRSA screen was positive. - ALLERGIES Allergies/Adverse Reactions: Allergies Allergy/AdvReac Type Severity Reaction Status Date / Time No Known Drug Allergies Allergy Verified 12/09/19 19:04 - MEDICATIONS Home Medications: Ambulatory Orders Medication Instructions Recorded Confirmed Ascorbic Acid [Vitamin C] 1 tab PO DAILY 06/03/16 12/22/19 B12/Levomefolate Calcium/B-6 1 tab PO DAILY 06/03/16 12/22/19 [Foltx Tablet] Calcium Citrate/Magnesium/D3 1 tab PO DAILY 06/03/16 12/22/19 [Calcium Citrate Chewable Wafer] Multivit with Calcium,Iron,Min 1 tab PO DAILY 06/03/16 12/22/19 [Multiple Vitamins For Women] buPROPion HCl [Bupropion HCl Sr] 100 mg PO DAILY 12/22/19 12/22/19 - PHYSICAL EXAM AT DISCHARGE General Appearance: positive: No acute distress, Alert Eyes Bilateral: positive: Normal inspection, EOMI ENT: positive: ENT inspection nml, No signs of dehydration Neck: positive: Nml inspection, No JVD Respiratory: positive: No respiratory distress, Breath sounds nml Cardiovascular: positive: Regular rate & rhythm, No murmur Abdomen: positive: Non-tender, Other (Obese with pannus) Skin: positive: Color nml Extremities: positive: No pedal edema, Other (R lower arm in post-op splint and bandaged, good nailbed color) Neurologic/Psychiatric: positive: Oriented x3, Other (non-focal) - LABS Result Diagrams: 12/22/19 05:30 12/22/19 15:07 - DIAGNOSTIC IMAGING Diagnostic Imaging Results: Final report reviewed - TIME SPENT Time Spent in Discharge (Minutes): 45
[2019-12-22 18:10] VITALS: BP 143/96
[2019-12-23] MEDS ORDERED: buPROPion SR 100 MG TABLET PO SCH (09:00)
== END 2019-12-22 18:20 | disposition home or self-care (01) | DRG 917 ==
LOC: EDUNIT# → ED 22:16 → ICU 12-22 00:21
PROVIDERS: ADMIT Internal Medicine; ATTEND Internal Medicine
PROC: 5A1935Z Respiratory Ventilation, Less than 24 Consecutive Hours (ICD-10-PCS; principal; 2019-12-22)
DX: T40.2X1A Poisoning by other opioids, accidental (unintentional), initial encounter (principal); J96.01 Acute respiratory failure with hypoxia; Y92.009 Unspecified place in unspecified non-institutional (private) residence as the place of occurrence of the external cause; S62.101D Fracture of unspecified carpal bone, right wrist, subsequent encounter for fracture with routine healing; I10 Essential (primary) hypertension; E86.0 Dehydration; I95.9 Hypotension, unspecified; R68.84 Jaw pain; R07.0 Pain in throat; Z78.1 Physical restraint status; Z79.899 Other long term (current) drug therapy; Z22.322 Carrier or suspected carrier of Methicillin resistant Staphylococcus aureus
CPT/HCPCS: 36415; 36600; 70450; 71045; 71275; 80048; 80053; 80306; 80307; 80320; 80329; 81001; 81025; 82009; 82550; 82803; 83036; 83605; 83735; 83880; 84100; 84443; 84484; 85025; 85610; 85730; 87040; 87150; 93005; 94002; 96365; 96366; 96368; 99285; 99291; A9270; Q9967; 81003; 87086; 94770

== ENCOUNTER 2019-12-28 08:50 | Outpatient (CLI) | payer OTHER ==
[2019-12-28 12:21] LABS: BASOPHILS % (AUTO) 0.6 %; EOSINOPHILS # (AUTO) 0.1 10^3/uL (0.0-0.7); EOSINOPHILS % (AUTO) 1.5 %; HGB - HEMOGLOBIN 13.9 g/dL (12.0-16.0); LYMPHOCYTES # (AUTO) 1.2 10^3/uL (1.5-3.5); LYMPHOCYTES % (AUTO) 21.7 %; MEAN CORPUSCULAR HGB CONC 30.7 g/dL (32.0-36.0); MEAN CORPUSCULAR VOLUME 94.6 fL (81.0-99.0); MONOCYTES # (AUTO) 0.4 10^3/uL (0.0-1.0); MONOCYTES % (AUTO) 7.2 %; NEUTROPHILS # (AUTO) 3.7 10^3/uL (1.5-6.6); NEUTROPHILS % (AUTO) 68.6 %; PLT - PLATELET COUNT 247 10^3/uL (130-450); RED BLOOD COUNT 4.79 10^6/uL (4.20-5.40); RED CELL DISTRIBUTION WIDTH 14.4 % (12.0-15.0); WHITE BLOOD COUNT 5.4 x10^3/uL (4.8-10.8)
[2019-12-28 12:42] LABS: ALBUMIN 3.7 g/dL (3.2-5.5); ALBUMIN/GLOBULIN RATIO 1.3 (1.0-2.2); BILIRUBIN,TOTAL 0.7 mg/dL (0.2-1.0); CALCIUM 9.3 mg/dL (8.5-10.3); CREATININE 0.6 mg/dL (0.4-1.0); TOTAL PROTEIN 6.6 g/dL (6.7-8.2)
== END 2019-12-28 23:59 | disposition home or self-care (01) ==
LOC: LAB.WCP 08:50
PROVIDERS: ATTEND Physician Assistant Medical
DX: J96.90 Respiratory failure, unspecified, unspecified whether with hypoxia or hypercapnia (principal)
CPT/HCPCS: 36415; 80053; 85025

== ENCOUNTER 2019-12-28 14:49 | Outpatient (CLI) | payer OTHER ==
--- NOTE | 2019-12-28 16:19 | Ultrasound Report ---
Reason: LLE EDEMA Procedure Date: 12/28/2019 Accession Number: [id number] / [id number] Procedure: US - Duplex Ext Veins Left CPT Code: Final Report FULL RESULT: EXAM: LEFT LOWER EXTREMITY VENOUS ULTRASOUND EXAM DATE: 12/28/2019 03:32 PM. CLINICAL HISTORY: Left lower extremity edema. COMPARISON: None. TECHNIQUE: Real-time sonographic vascular imaging was performed by the plug machine operator through the lower extremity utilizing both color-flow and Doppler spectral analysis. Multiple customer service representative teller static images were saved for review. FINDINGS: Common Femoral Vein (CFV): Normal. CFV-GSV Junction: Normal. Profunda Femoral Vein (PFV): Normal. Femoral Vein (FV) Prox: Normal. Femoral Vein (FV) Mid: Normal. Femoral Vein (FV) Dist: Normal. Calf veins were not well seen. Other: Fluid is seen in a linear fashion along the lateral aspect of the knee, presumably within a bursa, 5.2 x 0.9 x 1.9 cm. IMPRESSION: No DVT. Limited calf vein visualization. Fluid is seen tracking along the lateral aspect of the knee, possibly bursal. RADIA
== END 2019-12-28 14:50 | disposition home or self-care (01) ==
LOC: DI 14:49
PROVIDERS: ATTEND Physician Assistant Medical
DX: R60.0 Localized edema (principal); J96.90 Respiratory failure, unspecified, unspecified whether with hypoxia or hypercapnia
CPT/HCPCS: 36415; 80053; 85025

== ENCOUNTER 2020-10-08 15:00 | Outpatient (CLI) | payer OTHER ==
--- NOTE | 2020-10-09 14:39 | Mammography Report ---
BILATERAL DIGITAL SCREENING MAMMOGRAM 3D/2D: 10/08/2020 CLINICAL: Routine screening. Comparison is made to exams dated: 09/06/2019 mammogram, 09/03/2018 mammogram, 08/24/2017 mammogram, 10/12/2015 mammogram, and 10/12/2013 mammogram - [facility]. There are scattered fi broglandular elements in both breasts. No significant masses, calcifications, or other findings are seen in either breast. There has been no significant interval change. IMPRESSION: NEGATIVE There is no mammographic evidence of malignancy. A 1 year screening mammogram is recommended. This exam was interpreted at Station ID: [id number]. NOTE: For mammograms, a report in lay terms will be sent to the patient. Approximately 15% of breast malignancies will not be visualized mammographically. In the management of a palpable breast mass, a negative mammogram must not discourage biopsy of a clinically suspicious lesion. Electronically Signed By: Trace Kennedy M.D. slc/penrad:10/09/2020 11:40:41 ACR BI-RADS Category 1: Negative 3341F PARENCHYMAL PATTERN: (A) - The breast(s) demonstrate(s) scattered fibroglandular densities. BI-RADS CATEGORY: (1) - 1 RECOMMENDATION: (ANNUAL) - Recommend routine annual screening mammography. [id number] 1 year screening LATERALITY: (B)
== END 2020-10-08 15:01 | disposition home or self-care (01) ==
LOC: DI.N 15:00
DX: Z12.31 Encounter for screening mammogram for malignant neoplasm of breast (principal)

== ENCOUNTER 2021-01-14 08:00 | Outpatient (CLI) | payer OTHER ==
[2021-01-14 11:58] LABS: ALBUMIN 4.3 g/dL (3.2-5.5); ALBUMIN/GLOBULIN RATIO 1.4 (1.0-2.2); ALKALINE PHOSPHATASE 89 IU/L (42-121); ALT ALANINE AMINOTRANSFERASE 21 IU/L (10-60); AST ASPARTATE AMINOTRANSFERASE 23 IU/L (10-42); BILIRUBIN,TOTAL 0.7 mg/dL (0.2-1.0); BUN - BLOOD UREA NITROGEN 18 mg/dL (6-20); CALCIUM 9.4 mg/dL (8.5-10.3); CARBON DIOXIDE - CO2 32 mmol/L (21-32); CHLORIDE 99 mmol/L (101-111); CHOL/HDL RATIO 2.7 (<4.4); CHOLESTEROL 204 mg/dL; CREATININE 0.5 mg/dL (0.4-1.0); GFR - MDRD 127 (>89); GLUCOSE 104 mg/dL (70-100); HDL CHOLESTEROL 75 mg/dL; LDL CHOLESTEROL,CALCULATED 117 mg/dL; LDL/HDL RATIO 1.6 (<4.4); POTASSIUM 4.6 mmol/L (3.5-5.0); SODIUM 137 mmol/L (135-145); TOTAL PROTEIN 7.3 g/dL (6.7-8.2); TRIGLYCERIDES 58 mg/dL; VLDL CHOLESTEROL 12 mg/dL
[2021-01-14 12:05] LABS: BASOPHILS % (AUTO) 0.6 %; EOSINOPHILS # (AUTO) 0.1 10^3/uL (0.0-0.7); EOSINOPHILS % (AUTO) 1.7 %; HCT - HEMATOCRIT 50.8 % (37.0-47.0); HGB - HEMOGLOBIN 15.4 g/dL (12.0-16.0); LYMPHOCYTES # (AUTO) 1.4 10^3/uL (1.5-3.5); MEAN CORPUSCULAR HEMOGLOBIN 29.1 pg (27.0-31.0); MEAN CORPUSCULAR HGB CONC 30.3 g/dL (32.0-36.0); MEAN CORPUSCULAR VOLUME 95.8 fL (81.0-99.0); MEAN PLATELET VOLUME 10.2 fL (7.9-10.8); MONOCYTES # (AUTO) 0.3 10^3/uL (0.0-1.0); MONOCYTES % (AUTO) 5.9 %; NEUTROPHILS # (AUTO) 3.4 10^3/uL (1.5-6.6); NEUTROPHILS % (AUTO) 64.4 %; PLT - PLATELET COUNT 221 10^3/uL (130-450); WHITE BLOOD COUNT 5.2 x10^3/uL (4.8-10.8)
[2021-01-14 12:08] LABS: THYROID STIMULATING HORMONE 2.37 uIU/mL (0.34-5.60)
== END 2021-01-14 08:01 | disposition home or self-care (01) ==
LOC: LAB.WCP 08:00
PROVIDERS: ATTEND Physician Assistant Medical
DX: Z00.00 Encounter for general adult medical examination without abnormal findings (principal); F32.9 Major depressive disorder, single episode, unspecified; R42 Dizziness and giddiness; I10 Essential (primary) hypertension
CPT/HCPCS: 36415; 80053; 80061; 83721; 84443; 85025

== ENCOUNTER 2021-08-01 14:00 | Outpatient (CLI) | payer OTHER | END 2021-08-01 23:59 | disposition home or self-care (01) | LOC: LAB 14:00 | PROVIDERS: ATTEND Physician Assistant Medical | DX: Z00.00 Encounter for general adult medical examination without abnormal findings (principal); R06.00 Dyspnea, unspecified; M62.81 Muscle weakness (generalized); Z20.822 Contact with and (suspected) exposure to COVID-19 ==

== ENCOUNTER 2021-08-02 08:00 | Outpatient (CLI) | payer OTHER ==
[2021-08-02 13:09] LABS: BASOPHILS # (AUTO) 0.1 10^3/uL (0.0-0.1); BASOPHILS % (AUTO) 0.8 %; EOSINOPHILS # (AUTO) 0.1 10^3/uL (0.0-0.7); EOSINOPHILS % (AUTO) 1.1 %; HCT - HEMATOCRIT 53.1 % (37.0-47.0); HGB - HEMOGLOBIN 15.8 g/dL (12.0-16.0); LYMPHOCYTES # (AUTO) 1.4 10^3/uL (1.5-3.5); LYMPHOCYTES % (AUTO) 21.2 %; MEAN CORPUSCULAR HEMOGLOBIN 28.5 pg (27.0-31.0); MEAN CORPUSCULAR HGB CONC 29.8 g/dL (32.0-36.0); MEAN CORPUSCULAR VOLUME 95.7 fL (81.0-99.0); MEAN PLATELET VOLUME 9.7 fL (7.9-10.8); MONOCYTES # (AUTO) 0.4 10^3/uL (0.0-1.0); MONOCYTES % (AUTO) 6.1 %; NEUTROPHILS # (AUTO) 4.5 10^3/uL (1.5-6.6); NEUTROPHILS % (AUTO) 70.6 %; PLT - PLATELET COUNT 249 10^3/uL (130-450); RED BLOOD COUNT 5.55 10^6/uL (4.20-5.40); RED CELL DISTRIBUTION WIDTH 14.3 % (12.0-15.0); WHITE BLOOD COUNT 6.4 x10^3/uL (4.8-10.8)
[2021-08-02 13:48] LABS: ALBUMIN/GLOBULIN RATIO 1.1 (1.0-2.2); ALKALINE PHOSPHATASE 95 IU/L (42-121); ALT ALANINE AMINOTRANSFERASE 20 IU/L (10-60); AST ASPARTATE AMINOTRANSFERASE 24 IU/L (10-42); BILIRUBIN,TOTAL 0.6 mg/dL (0.2-1.0); BUN - BLOOD UREA NITROGEN 14 mg/dL (6-20); CALCIUM 9.4 mg/dL (8.5-10.3); CARBON DIOXIDE - CO2 38 mmol/L (21-32); CHLORIDE 90 mmol/L (101-111); CHOL/HDL RATIO 2.3 (<4.4); CHOLESTEROL 168 mg/dL; CREATININE 0.6 mg/dL (0.4-1.0); GFR - MDRD 103 (>89); GLUCOSE 92 mg/dL (70-100); HDL CHOLESTEROL 73 mg/dL; LDL CHOLESTEROL,CALCULATED 85 mg/dL; LDL/HDL RATIO 1.2 (<4.4); SODIUM 138 mmol/L (135-145); TOTAL PROTEIN 7.5 g/dL (6.7-8.2); TRIGLYCERIDES 51 mg/dL; VLDL CHOLESTEROL 10 mg/dL
[2021-08-02 14:18] LABS: THYROID STIMULATING HORMONE 2.72 uIU/mL (0.34-5.60)
[2021-08-02 14:24] LABS: FERRITIN 4.2 ng/mL (11.0-306.8)
[2021-08-02 14:47] LABS: CRP - C-REACTIVE PROTEIN < 1.0 mg/dL (0-1.0)
== END 2021-08-02 23:59 | disposition home or self-care (01) ==
LOC: LAB.WCP 08:00
PROVIDERS: ATTEND Physician Assistant Medical
DX: Z00.00 Encounter for general adult medical examination without abnormal findings (principal); M62.81 Muscle weakness (generalized); R06.00 Dyspnea, unspecified
CPT/HCPCS: 36415; 80053; 80061; 82306; 82607; 82728; 83721; 84443; 85025; 85379; 85651; 86140

== ENCOUNTER 2021-08-07 15:56 | Outpatient (CLI) | payer OTHER ==
[2021-08-07] MEDS ORDERED: IOVERSOL 320 100 ML VIAL IVP ONE ×2 (16:04→20:48)
--- NOTE | 2021-08-07 17:02 | CT Report ---
PROCEDURE: ANGIO CHEST W/WO INDICATIONS: DYSPNEA CONTRAST: IV CONTRAST: Optiray 320 ml: 80 PO CONTRAST: *NO PO CONTRAST TECHNIQUE: After the administration of intravenous contrast, 2 mm axial images were acquired from the pulmonary apices to the posterior costophrenic angles during the arterial phase. In addition, 1 mm lung kernel and 5 mm soft tissue kernel reconstructions were performed. 3-dimensional coronal oblique maximum int ensity projection (MIP) reformats, 8 mm axial MIP, and 5 mm coronal and sagittal MPR reformats were t hen performed through the thorax. For radiation dose reduction, the following was used: automated exp osure control, adjustment of mA and/or kV according to patient size. COMPARISON: CT angiogram of chest 12/21/2019, chest x-ray 12/21/2019 FINDINGS: Image quality: Excellent. Pulmonary arteries: Pulmonary arteries are normal in size, and demonstrate no intraluminal filling d efects to suggest central pulmonary embolism. Lungs and pleura: Mild atelectasis is noted within the bases. No consolidations No pleural effusions or pneumothorax. Central and peripheral airways are patent. Mediastinum: Heart size is normal, without pericardial effusion. No mediastinal or hilar adenopathy . Thoracic aorta is normal in caliber and enhancement. Esophagus is normal in caliber, without hiat al hernia. Bones and chest wall: No suspicious bony lesions. Ribs and thoracic spine appear intact throughout. No axillary or supraclavicular adenopathy. The thyroid is normal in size and there are no incident al findings. Abdomen: Visualized upper abdominal solid organs appear normal in the early arterial phase of enhanc ement. IMPRESSION: No pulmonary embolism. Mild bibasilar atelectasis CLINICAL RECOMMENDATION STATEMENTS: In patients <35 years with an ITN detected on CT, MRI, or extrathyroidal ultrasound, the Committee re commends further evaluation with dedicated thyroid ultrasound if the nodule is "e1 cm and has no susp icious imaging features, and if the patient has normal life expectancy. In patients "e35 years with an ITN detected on CT, MRI, or extrathyroidal ultrasound, the Committee r ecommends further evaluation with dedicated thyroid ultrasound if the nodule is "e1.5 cm and has no s uspicious imaging features, and if the patient has normal life expectancy. (ACR, 2014) Reviewed by: Clau Benavides MD on 08/07/2021 5:00 PM PDT Approved by: Clau Benavides MD on 08/07/2021 5:00 PM PDT Station ID: [id number]
== END 2021-08-07 15:57 | disposition home or self-care (01) ==
LOC: DI 15:56
PROVIDERS: ATTEND Physician Assistant Medical
DX: R79.89 Other specified abnormal findings of blood chemistry (principal); J98.11 Atelectasis
CPT/HCPCS: 71275; Q9967

== ENCOUNTER 2021-08-08 13:23 | Outpatient (CLI) | payer OTHER ==
[2021-08-08] MEDS ORDERED: ALBUTEROL 1 PUFF INH STA (15:41)
== END 2021-08-08 13:24 | disposition home or self-care (01) ==
LOC: RT 13:23
PROVIDERS: ATTEND Physician Assistant Medical
DX: R06.00 Dyspnea, unspecified (principal)
CPT/HCPCS: 94060; 94729

== ENCOUNTER 2021-08-21 17:41 | Inpatient (IN) | payer OTHER ==
[2021-08-21] MEDS ORDERED: ALBUTEROL 1 PUFF INH STA (18:44)
[2021-08-21 18:53] LABS: BASOPHILS % (AUTO) 0.6 %; EOSINOPHILS % (AUTO) 0.3 %; HCT - HEMATOCRIT 51.4 % (37.0-47.0); HGB - HEMOGLOBIN 14.9 g/dL (12.0-16.0); LYMPHOCYTES % (AUTO) 13.7 %; MEAN CORPUSCULAR HEMOGLOBIN 26.8 pg (27.0-31.0); MEAN CORPUSCULAR VOLUME 92.6 fL (81.0-99.0); MEAN PLATELET VOLUME 9.7 fL (7.9-10.8); MONOCYTES # (AUTO) 0.5 10^3/uL (0.0-1.0); MONOCYTES % (AUTO) 7.8 %; NEUTROPHILS # (AUTO) 5.4 10^3/uL (1.5-6.6); NEUTROPHILS % (AUTO) 77.3 %; NRBC ABSOLUTE COUNT (AUTO) 0.02 x10^3/uL; NUCLEATED RED BLOOD CELLS AUTO 0.3 /100WBC; PLT - PLATELET COUNT 255 10^3/uL (130-450); RED BLOOD COUNT 5.55 10^6/uL (4.20-5.40); RED CELL DISTRIBUTION WIDTH 15.3 % (12.0-15.0); WHITE BLOOD COUNT 6.9 x10^3/uL (4.8-10.8)
[2021-08-21 19:11] LABS: ALBUMIN/GLOBULIN RATIO 1.1 (1.0-2.2); BILIRUBIN,TOTAL 0.4 mg/dL (0.2-1.0); CALCIUM 9.2 mg/dL (8.5-10.3); CREATININE 0.7 mg/dL (0.4-1.0); MAGNESIUM 2.3 mg/dL (1.7-2.8); POTASSIUM 4.2 mmol/L (3.5-5.0); TOTAL PROTEIN 7.5 g/dL (6.7-8.2)
[2021-08-21 19:27] LABS: THYROID STIMULATING HORMONE 1.78 uIU/mL (0.34-5.60)
--- NOTE | 2021-08-21 19:28 | XRAY Report ---
PROCEDURE: Chest 1 View X-Ray INDICATIONS: Chest Pain TECHNIQUE: One view of the chest was acquired. COMPARISON: CT scan chest 08/07/2021. Single view chest x-ray 12/21/2010 20. FINDINGS: Surgical changes and devices: None. Lungs and pleura: No pleural effusions or pneumothorax. Markedly low lung volumes stable compared to prior exams. Increased opacification noted in the left lung base which could represent atelectasis, aspiration or pneumonia. Mediastinum: Mediastinal contours appear normal. Heart size is normal. Bones and chest wall: No suspicious bony lesions. Overlying soft tissues appear unremarkable. IMPRESSION: 1. Persistent low lung volumes with elevation of the hemidiaphragms bilaterally. 2. Increased opacification in the left lung base which could represent atelectasis, aspiration or pne umonia. Reviewed by: Ladi Benoit MD, PhD on 08/21/2021 7:26 PM PDT Approved by: Ladi Benoit MD, PhD on 08/21/2021 7:26 PM PDT Station ID: [id number]
[2021-08-21 19:29] LABS: FREE T4 (FREE THYROXINE) 1.27 ng/dL (0.58-1.64)
--- NOTE | 2021-08-21 19:45 | ED Physician Documentation ---
History of Present Illness - Stated complaint Stated Complaint: GLORIA/TIRED/HEADACHE/SHAKEY - Chief complaint Chief Complaint: Resp - History obtained from History obtained from: Patient - History of Present Illness Timing: Today Pain level max: 0 Pain level now: 0 - Additonal information Additional information: Patient is a 56-year-old female who presents to the emergency department after feeling short of breath for the past several weeks. She states that this has been gradually getting worse and worse. She has had pulmonary function testing done with her doctor. She had a CT pulmonary angiogram for possible PE. This was negative. The pulmonary function testing showed restrictive lung disease. She was started on inhalers but does not feel improved. She states that she has a longstanding history of cardiac disease. 8 of the 12 children have had stents and/or bypasses. She is concerned about her heart. Has a cardiac stress test scheduled next week. Review of Systems Ten Systems: 10 systems reviewed and negative Constitutional: denies: Fever, Chills Ears: denies: Ear pain Nose: denies: Rhinorrhea / runny nose, Congestion Throat: denies: Sore throat Cardiac: denies: Palpitations Respiratory: reports: Dyspnea. denies: Cough, Hemoptysis, Wheezing GI: denies: Abdominal Pain, Nausea, Vomiting, Diarrhea Skin: denies: Rash Musculoskeletal: denies: Neck pain, Back pain Neurologic: denies: Headache PD PAST MEDICAL HISTORY - Past Medical History Cardiovascular: Hypertension Respiratory: None Endocrine/Autoimmune: None GI: Chronic constipation : None HEENT: None Psych: Depression Musculoskeletal: None Derm: None - Past Surgical History General: Colonoscopy Ortho: Other /SERVICE PROVIDER: section, Oophrectomy HEENT: Tonsil/Adenoidectomy - Present Medications Home Medications: Ambulatory Orders Medication Instructions Recorded Confirmed Ascorbic Acid [Vitamin C] 1 tab PO DAILY 06/03/16 12/22/19 B12/Levomefolate Calcium/B-6 1 tab PO DAILY 06/03/16 12/22/19 [Foltx Tablet] Calcium Citrate/Magnesium/D3 1 tab PO DAILY 06/03/16 12/22/19 [Calcium Citrate Chewable Wafer] Multivit with Calcium,Iron,Min 1 tab PO DAILY 06/03/16 12/22/19 [Multiple Vitamins For Women] buPROPion HCl [Bupropion HCl Sr] 100 mg PO DAILY 12/22/19 12/22/19 - Allergies Allergies/Adverse Reactions: Allergies Allergy/AdvReac Type Severity Reaction Status Date / Time No Known Drug Allergies Allergy Verified 08/21/21 18:07 - Social History Does the pt smoke?: No Smoking Status: Never smoker Does the pt drink ETOH?: No Does the pt have substance abuse?: No - POLST Patient has POLST: No POLST Status: Full Code PD ED PE NORMAL - Vitals Vital signs reviewed: Yes - General General: Alert and oriented X 3, No acute distress, Well developed/nourished - HEENT HEENT: Moist mucous membranes, Pharynx benign - Neck Neck: Supple, no meningeal sign - Cardiac Cardiac: RRR - Respiratory Respiratory: No respiratory distress, Other (Diminished breath sounds bilaterally, no wheezing.) - Abdomen Abdomen: Normal bowel sounds, Soft, Non tender, Non distended - Derm Derm: Warm and dry - Extremities Extremities: No edema, No calf tenderness / cord - Neuro Neuro: Alert and oriented X 3 - Psych Psych: Normal mood, Normal affect Results - Vitals Vitals: Vital Signs - 24 hr 08/21/21 08/21/21 08/21/21 18:01 18:27 18:59 Temperature 36.4 C L Heart Rate 102 H 92 Respiratory 28 H 22 Rate Blood Pressure 153/102 H O2 Saturation 89 L 97 08/21/21 08/21/21 08/21/21 20:02 20:41 21:00 Temperature Heart Rate 96 91 89 Respiratory 31 H 26 H 18 Rate Blood Pressure 137/95 H 166/106 H 166/105 H O2 Saturation 93 92 94 Oxygen O2 Source Room air Oxygen Flow Rate 4 - EKG (time done) 1812 Rate: Rate (enter#) (100) Rhythm: Sinus tachycardia, Other (PVC) [place]: Normal Intervals: Normal VT QRS: Normal Ischemia: Normal ST segments - Labs Labs: Laboratory Tests 08/21/21 08/21/21 08/21/21 18:20 18:20 18:20 WBC 6.9 RBC 5.55 H Hgb 14.9 Hct 51.4 H MCV 92.6 MCH 26.8 L MCHC 29.0 L RDW 15.3 H Plt Count 255 MPV 9.7 Neut # (Auto) 5.4 Lymph # (Auto) 1.0 L Long # (Auto) 0.5 Eos # (Auto) 0.0 Baso # (Auto) 0.0 Absolute Nucleated RBC 0.02 Nucleated RBC % 0.3 Sodium 133 L Potassium 4.2 Chloride 88 L Carbon Dioxide 37 H Anion Gap 8.0 BUN 21 H Creatinine 0.7 Estimated GFR (MDRD) 86 L Glucose 150 H Calcium 9.2 Phosphorus 4.0 Magnesium 2.3 Total Bilirubin 0.4 AST 26 ALT 22 Alkaline Phosphatase 91 Troponin I High Sens 258.6 H* B-Natriuretic Peptide Total Protein 7.5 Albumin 4.0 Globulin 3.5 Albumin/Globulin Ratio 1.1 Lipase 29 TSH Free T4 Nasal Adenovirus (PCR) Nasal B. parapertussis DNA (PCR) Nasal Coronavir 229E PCR Nasal Coronavir HKU1 PCR Nasal Coronavir NL63 PCR Nasal Coronavir OC43 PCR Nasal Enterovir/Rhinovir PCR Nasal Influenza B PCR Nasal Influenza A PCR Nasal Parainfluen 1 PCR Nasal Parainfluen 2 PCR Nasal Parainfluen 3 PCR Nasal Parainfluen 4 PCR Nasal RSV (PCR) Nasal B.pertussis DNA PCR Nasal C.pneumoniae (PCR) Victor M Human Metapneumo PCR Nasal M.pneumoniae (PCR) Nasal SARS-CoV-2 (PCR) Urine Opiates Screen Ur Oxycodone Screen Urine Methadone Screen Ur Propoxyphene Screen Ur Barbiturates Screen Ur Tricyclics Screen Ur Phencyclidine Scrn Ur Amphetamine Screen U Methamphetamines Scrn U Benzodiazepines Scrn Urine Cocaine Screen U Cannabinoids Screen Ethyl Alcohol 08/21/21 08/21/21 08/21/21 18:20 18:20 18:20 WBC RBC Hgb Hct MCV MCH MCHC RDW Plt Count MPV Neut # (Auto) Lymph # (Auto) Long # (Auto) Eos # (Auto) Baso # (Auto) Absolute Nucleated RBC Nucleated RBC % Sodium Potassium Chloride Carbon Dioxide Anion Gap BUN Creatinine Estimated GFR (MDRD) Glucose Calcium Phosphorus Magnesium Total Bilirubin AST ALT Alkaline Phosphatase Troponin I High Sens B-Natriuretic Peptide 202 H Total Protein Albumin Globulin Albumin/Globulin Ratio Lipase TSH 1.78 Free T4 1.27 Nasal Adenovirus (PCR) Nasal B. parapertussis DNA (PCR) Nasal Coronavir 229E PCR Nasal Coronavir HKU1 PCR Nasal Coronavir NL63 PCR Nasal Coronavir OC43 PCR Nasal Enterovir/Rhinovir PCR Nasal Influenza B PCR Nasal Influenza A PCR Nasal Parainfluen 1 PCR Nasal Parainfluen 2 PCR Nasal Parainfluen 3 PCR Nasal Parainfluen 4 PCR Nasal RSV (PCR) Nasal B.pertussis DNA PCR Nasal C.pneumoniae (PCR) Victor M Human Metapneumo PCR Nasal M.pneumoniae (PCR) Nasal SARS-CoV-2 (PCR) Urine Opiates Screen Ur Oxycodone Screen Urine Methadone Screen Ur Propoxyphene Screen Ur Barbiturates Screen Ur Tricyclics Screen Ur Phencyclidine Scrn Ur Amphetamine Screen U Methamphetamines Scrn U Benzodiazepines Scrn Urine Cocaine Screen U Cannabinoids Screen Ethyl Alcohol < 5.0 08/21/21 08/21/21 19:52 20:00 WBC RBC Hgb Hct MCV MCH MCHC RDW Plt Count MPV Neut # (Auto) Lymph # (Auto) Long # (Auto) Eos # (Auto) Baso # (Auto) Absolute Nucleated RBC Nucleated RBC % Sodium Potassium Chloride Carbon Dioxide Anion Gap BUN Creatinine Estimated GFR (MDRD) Glucose Calcium Phosphorus Magnesium Total Bilirubin AST ALT Alkaline Phosphatase Troponin I High Sens B-Natriuretic Peptide Total Protein Albumin Globulin Albumin/Globulin Ratio Lipase TSH Free T4 Nasal Adenovirus (PCR) NOT DETECTED Nasal B. parapertussis DNA (PCR) NOT DETECTED Nasal Coronavir 229E PCR NOT DETECTED Nasal Coronavir HKU1 PCR NOT DETECTED Nasal Coronavir NL63 PCR NOT DETECTED Nasal Coronavir OC43 PCR NOT DETECTED Nasal Enterovir/Rhinovir PCR NOT DETECTED Nasal Influenza B PCR NOT DETECTED Nasal Influenza A PCR NOT DETECTED Nasal Parainfluen 1 PCR NOT DETECTED Nasal Parainfluen 2 PCR NOT DETECTED Nasal Parainfluen 3 PCR NOT DETECTED Nasal Parainfluen 4 PCR NOT DETECTED Nasal RSV (PCR) NOT DETECTED Nasal B.pertussis DNA PCR NOT DETECTED Nasal C.pneumoniae (PCR) NOT DETECTED Victor M Human Metapneumo PCR NOT DETECTED Nasal M.pneumoniae (PCR) NOT DETECTED Nasal SARS-CoV-2 (PCR) NOT DETECTED Urine Opiates Screen NEGATIVE Ur Oxycodone Screen NEGATIVE Urine Methadone Screen NEGATIVE Ur Propoxyphene Screen NEGATIVE Ur Barbiturates Screen NEGATIVE Ur Tricyclics Screen NEGATIVE Ur Phencyclidine Scrn NEGATIVE Ur Amphetamine Screen NEGATIVE U Methamphetamines Scrn NEGATIVE U Benzodiazepines Scrn NEGATIVE Urine Cocaine Screen NEGATIVE U Cannabinoids Screen NEGATIVE Ethyl Alcohol - Rads (name of study) cxr Radiology: Final report received, EMP read contemporaneously, See rad report PD MEDICAL DECISION MAKING - ED course Complexity details: reviewed results, re-evaluated patient, considered differential, d/w patient, d/w beverage sales consultant ED course: 56-year-old female presents to the emergency department for worsening dyspnea over the past several weeks. She had a pulmonary function test recently that showed apparently severe restriction of her lungs. She has not had an echocardiogram or a cardiac stress test. Her troponin was elevated tonight, 258. Started on a heparin drip. She took an aspirin prior to arrival. Unclear if this is primary cardiac primary pulmonary or combination of the 2. She would benefit from transfer to a facility with both cardiology and pulmonary. Discussed the case with Dr. Nila Hernandez, she will attempt to find a bed for the patient. Beds in the region are very scarce right now and transferring is difficult. The patient may have a prolonged stay in the emergency department. Patient will be signed out to the oncoming emergency department physician for further placement. Until that time she will be maintained on a heparin drip. This document was made in part using voice recognition software. While efforts are made to proofread this document, sound alike and grammatical errors may occur. 1. Persistent low lung volumes with elevation of the hemidiaphragms bilaterally. 2. Increased opacification in the left lung base which could represent atelectasis, aspiration or pneumonia. Departure - Departure Disposition: 02 Transfer Acute Care Hosp Clinical Impression: NSTEMI (non-ST elevated myocardial infarction), Hypoxia Dyspnea Qualifiers: Dyspnea type: unspecified Qualified Code(s): R06.00 - Dyspnea, unspecified Condition: Stable
[2021-08-21 20:11] LABS: MUDS CUTOFF CONCENTRATIONS CUTOFF CONC BELOW:
[2021-08-21 20:25] LABS: AMPHETAMINE SCREEN,URINE NEGATIVE (NEGATIVE); BARBITURATE SCREEN,UR NEGATIVE (NEGATIVE); BENZODIAZEPINES SCREEN, URINE NEGATIVE (NEGATIVE); COCAINE SCREEN URINE NEGATIVE (NEGATIVE); METHADONE SCREEN, URINE NEGATIVE (NEGATIVE); METHAMPHETAMINES SCREEN, URINE NEGATIVE (NEGATIVE); OPIATE SCREEN, URINE NEGATIVE (NEGATIVE); OXYCODONE SCREEN, URINE NEGATIVE (NEGATIVE); PROPOXYPHENE SCREEN, URINE NEGATIVE (NEGATIVE); THC CANNABINOID SCREEN, URINE NEGATIVE (NEGATIVE); TRICYCLIC ANTIDEPRESSANT,URINE NEGATIVE (NEGATIVE)
[2021-08-21 21:02] LABS: B. PARAPERTUSSIS- RESP PCR PAN NOT DETECTED; B. PERTUSSIS- RESP PCR PANEL NOT DETECTED; C. PNEUMONIAE- RESP PCR PANEL NOT DETECTED; CORONAVIRUS 229E-RESP PCR NOT DETECTED; CORONAVIRUS HKU1-RESP PCR NOT DETECTED; CORONAVIRUS NL63-RESP PCR NOT DETECTED; CORONAVIRUS OC43-RESP PCR NOT DETECTED; HUMAN METAPNEUMOVIRUS NOT DETECTED; INFLUENZA A- RESP PCR PANEL NOT DETECTED; INFLUENZA B - RESP PCR PANEL NOT DETECTED; M. PNEUMONIAE- RESP PCR PANEL NOT DETECTED; PARAINFLUENZA VIRUS 1 NOT DETECTED; PARAINFLUENZA VIRUS 2 NOT DETECTED; PARAINFLUENZA VIRUS 3 NOT DETECTED; PARAINFLUENZA VIRUS 4 NOT DETECTED; RHINOVIRUS/ENTEROVIRUS NOT DETECTED; RSV- RESP PCR PANEL NOT DETECTED; SARS-CoV-2 -RESP PCR PANEL NOT DETECTED
[2021-08-21] MEDS: HEPARIN 25000UNITS/500ML (D5W) 25,000 UNIT/500 ML BAG IV SCH (22:21)
[2021-08-22 05:42] LABS: INR 1.2 (0.8-1.2); PT - PROTHROMBIN TIME 12.8 secs (9.9-12.6)
[2021-08-22] MEDS ORDERED: ONDANSETRON ODT 4 MG TABLET TL STA (06:20)
[2021-08-22] MEDS ORDERED: HYDROmorphone 2 MG TABLET PO STA (06:20)
[2021-08-22] MEDS ORDERED: ACETAMINOPHEN 325 MG TABLET PO STA (06:48)
--- NOTE | 2021-08-22 07:04 | ED Physician Documentation ---
ED Addendum - Addendum Addendum: 08/22/21 07:00 NAEON. Patient with mild midback pain this morning. denies cp, diaphoresis, nausea. Requested tylenol which I have ordered. repeat ekg without acute ischemic findings. repeat trop ordered. patient endorsed to precious Walden MD.
[2021-08-22] MEDS: HEPARIN 25000UNITS/500ML (D5W) 25,000 UNIT/500 ML BAG IV SCH (07:44)
[2021-08-22] MEDS ORDERED: REGADENOSON 0.4 MG/5 ML SYRINGE IVP ONE ×3 (15:16→17:10)
[2021-08-22] MEDS ORDERED: AMINOPHYLLINE 500 MG/20 ML VIAL ONE (15:16)
[2021-08-22] MEDS ORDERED: IPRATROPIUM/ALBUTEROL 3 ML NEB INH STA (19:46)
[2021-08-22] MEDS ORDERED: methylPREDNISolone SUCCINATE 125 MG/2 ML VIAL IVP STA (19:46)
--- NOTE | 2021-08-22 22:08 | ED Physician Documentation ---
ED Addendum - Addendum Addendum: 08/22/21 22:06 Echocardiogram was ordered. No significant abnormalities. Her ejection fraction appears preserved, no significant wall abnormalities. Awaiting the final report. A cardiac stress test was also obtained as well as a cardiology consult. The stress portion of the stress test does not show any EKG abnormalities. The myocardial perfusion portion shows a tiny defect in the anterior inferior wall. The patient will be scheduled for the resting portion of the nuclear myocardial perfusion scan in the morning. I spoke with cardiology just prior to leaving my shift from [place]. The seamer states that that he would not catheterize this patient. He states that she can be taken off of the heparin drip. He states that she can be admitted and her lung disease treated. Recommends follow-up as an outpatient. He states that she should still receive the resting portion of the myocardial perfusion scan in the morning. Discussed the case with Dr. Vázquez, hospitalist who will admit the patient for her continued hypoxia and lung disease. Started on Solu-Medrol and DuoNebs regularly This document was made in part using voice recognition software. While efforts are made to proofread this document, sound alike and grammatical errors may occur. Departure - Departure Disposition: 66 [facility] DC/Xfer Clinical Impression: Hypoxia, Restrictive lung disease, Elevated troponin Dyspnea Qualifiers: Dyspnea type: unspecified Qualified Code(s): R06.00 - Dyspnea, unspecified Condition: Stable
[2021-08-22] MEDS ORDERED: SODIUM CHLORIDE FLUSH 0.9% 10 ML SYRINGE IVP PRN (22:25)
[2021-08-22] MEDS ORDERED: ONDANSETRON 4 MG/2 ML VIAL IVP PRN (22:25)
[2021-08-22] MEDS ORDERED: ACETAMINOPHEN 325 MG TABLET PO PRN (22:25)
[2021-08-22] MEDS ORDERED: ONDANSETRON ODT 4 MG TABLET TL PRN (22:25)
--- NOTE | 2021-08-22 22:35 | HISTORY & PHYSICAL EXAMINATION ---
Chief Complaint - Chief Complaint Chief Complaint: Shortness of breath History of Present Illness - Admitted From Admitted From:: Home - History Obtained From Records Reviewed: Yes History obtained from: Patient, ER Physician, EMR - History of Present Illness HPI Comment/Other: This is a 56-year-old female with a past medical history significant for hypertension who presents complaining of worsening dyspnea. She states that she has felt short of breath for the past 6 months but it has really progressed over the past 4 to 6 weeks to the point where she can barely exert herself and now even feels dyspneic just at rest. She follow-up with her primary care provider who ordered a CT angiogram of the chest which showed no evidence of pulmonary e mbolism but revealed bibasilar atelectasis. She had pulmonary function testing which suggested restrictive lung disease. She reports that she felt some relief with albuterol but she still felt quite dyspneic. She then began to notice that her lips became purple and that she was a little more confused at times and so she came to the emergency department. She states she has had occasional chest pain which is most prominent with deep inspiration and occasionally with activity. She has no chest pain at rest. She has had a nonproductive cough. She reports no fevers or chills. Denies nausea, vomiting, diarrhea. She denies any focal weakness or numbness. She did smoke about a pack a week for 10 years but quit over 25 years ago. Denies illicit drug use. She has not seen a wire preparation machine tender or jig grinder. She reports family history of coronary artery disease. In the emergency department, she was noted to have elevated troponin in the 250s. Initial concern was for NSTEMI and so she was started on heparin and cardiology was contacted for transfer. Unfortunately it was difficult to obtain a bed and she remained hospitalized overnight. She underwent a stress test today which did not suggest ischemia although reportedly the myocardial perfusion images suggested an area of ischemia over the anterior wall although this appeared quite mild. This finding was discussed with cardiology by the emergency department physician and they felt that there was no need to transfer to high-level care for cardiac catheterization and that the heparin drip can be discontinued and she can follow-up on outpatient basis. Given the patient is still hypoxic, medicine was consulted for admission. History - Past Medical History Cardiovascular: reports: Hypertension Respiratory: reports: Sleep apnea Endocrine/Autoimmune: reports: None GI: reports: Chronic constipation : reports: None HEENT: reports: None Psych: reports: Depression Musculoskeletal: reports: None Derm: reports: None MRSA Hx?: No - Past Surgical History General: reports: Colonoscopy Ortho: reports: Other (Right wrist ORIF.) /MEDICINE ASSISTANT: reports: Oophrectomy HEENT: reports: Tonsil/Adenoidectomy - Family & Social History Family History Comment/Other: She reports she had an older sister who passed from leukemia. 8 out of 12 siblings have coronary artery disease requiring stenting. Living arrangement: At home Living Situation: With spouse/s.o. Social History Notes: She cleans homes for living. She smoked a pack a week for about 10 years but quit about 30 years ago. Reports rare alcohol use. - POLST Patient has POLST: No POLST Status: Full Code Meds/Allgy - Home Medications Home Medications: Ambulatory Orders Medication Instructions Recorded Confirmed Ascorbic Acid [Vitamin C] 1 tab PO DAILY 06/03/16 08/22/21 B12/Levomefolate Calcium/B-6 1 tab PO DAILY 06/03/16 08/22/21 [Foltx Tablet] Calcium Citrate/Magnesium/D3 1 tab PO DAILY 06/03/16 08/22/21 [Calcium Citrate Chewable Wafer] Multivit with Calcium,Iron,Min 1 tab PO DAILY 06/03/16 08/22/21 [Multiple Vitamins For Women] buPROPion HCl [Bupropion HCl Sr] 100 mg PO DAILY 12/22/19 08/22/21 Albuterol Sulfate [Proair Hfa 2 puffs IH Q4HR PRN 08/22/21 08/22/21 Inhaler] Aspirin [[place] Aspirin] 81 mg PO DAILY 08/22/21 08/22/21 Losartan Potassium 25 mg PO DAILY 08/22/21 08/22/21 hydroCHLOROthiazide [Hydrodiuril] 12.5 mg PO DAILY 08/22/21 08/22/21 - Allergies Allergies/Adverse Reactions: Allergies Allergy/AdvReac Type Severity Reaction Status Date / Time No Known Drug Allergies Allergy Verified 08/21/21 18:07 Review of Systems - Constitutional Constitutional: denies: Fatigue, Fever, Chills, Malaise - Ears, Nose & Throat Ears, Nose & Throat: denies: Nasal discharge, Nasal congestion - Cardiovascular Cariovascular: reports: Chest pain, Exertional dyspnea, Decr. exercise tolerance. denies: Edema - Respiratory Respiratory: reports: Cough, SOB at rest, SOB with exertion, Pleuritic pain. denies: Sputum production - Gastrointestinal Gastrointestinal: denies: Abdominal pain, Diarrhea, Nausea, Vomiting - Genitourinary Genitourinary: denies: Dysuria, Frequency, Urgency, Hematuria - Integumentary Integumentary: denies: Rash - Neurological Neurological: denies: General weakness, Focal weakness, Numbness - All Other Systems All Other Systems: reports: Reviewed and negative Prior Level of Functionality: She is independent with her ADL's. Exam - Vital Signs Reviewed Vital Signs: Yes Vital Signs: Vital Signs x48h Temp Pulse Resp BP Pulse Ox 08/22/21 22:02 87 18 149/95 H 91 L 08/22/21 21:03 84 19 140/97 H 91 L 08/22/21 20:11 89 27 H 149/95 H 95 08/22/21 20:10 91 26 H 08/22/21 19:10 88 18 135/87 H 93 08/22/21 18:00 36.3 C L 93 24 134/91 H 93 - Physical Exam General Appearance: positive: No acute distress, Alert Eyes Bilateral: positive: Normal inspection ENT: positive: ENT inspection nml, Other (Nasal cannula in place.) Neck: positive: Nml inspection Respiratory: positive: No respiratory distress, Other (Diminished bilaterally.). negative: Wheezes, Rales Cardiovascular: positive: Regular rate & rhythm, No murmur. negative: Irregularly irregular, Tachycardia Abdomen: positive: Non-tender, No distention. negative: Tenderness Skin: positive: Warm, Dry Extremities: positive: No pedal edema Neurologic/Psychiatric: positive: Motor nml, Sensation nml. negative: Disoriented to person, Disoriented to place, Sensory loss Conclusion/Plan - Problem List (1) Acute respiratory failure with hypoxia Conclusion/Plan: She is hypoxic requiring 4 L of oxygen to maintain her oxygen saturations. Her most recent pulmonary function testing suggested a restrictive pattern. Her chest x-ray could not rule out an infiltrate but her white count is normal. She had a CT angiogram recently which showed no evidence of pulmonary embolism and showed evidence of bibasilar atelectasis. I suspect her hypoxia related to her restrictive lung disease which may be due to underlying obesity or potentially a neuromuscular disorder. The plan will be to continue her on submental oxygen for goal saturation greater than 88%. We will repeat a two-view chest x-ray and if there is evidence of an infiltrate we will start her on antibiotics empirically. We will also look to obtain a high-resolution CT of the chest to better evaluate the lung pleura. She already had an echocardiogram and I do not suspect that her hypoxia is of cardiac origin. We will check an ABG and we will likely discuss with pulmonology in the morning regarding further recommendations.. (2) Demand ischemia Conclusion/Plan: Her troponin was noted to be elevated initially in the 250s. She was started on heparin and underwent a stress test yesterday which showed no obvious evidence of ischemia although the myocardial perfusion imaging suggested a small defect. This is per the emergency department physician as I do not have the report available. This was discussed with cardiology on-call for [place] who felt that the patient did not need to be transferred for a catheterization and that the heparin drip could be discontinued and the patient seen on an outpatient basis. We will complete the resting portion of the stress test tomorrow morning. We will keep the patient on aspirin and start her on Lipitor as well. We will also look to initiate a beta-gloria. (3) Restrictive lung disease Conclusion/Plan: She had pulmonary function testing which suggested a restrictive pattern. The etiology of this is not clear although could be related to her obesity. She does not appear to have an underlying neuromuscular disorder. We will obtain a high-resolution CT of the chest as mentioned above. She will need pulmonology follow-up. (4) Hypertension Conclusion/Plan: She is hypertensive with systolic in the 140s. We will resume her home losartan and hydrochlorothiazide. - Lab Results Lab results reviewed: Yes Fish Bones: 08/21/21 18:20 08/21/21 18:20 - Diagnostic Imaging Results Diagnostic Imaging Results: positive: Final report reviewed - EKG Results EKG Interpreted Independently: Yes Core Measures - Anticipated LOS I expect patient to be DC'd or transferred within 96 hours.: Yes - Issues Hospital Issues and Management Plan: 56-year-old female presents with dyspnea with initial concern for NSTEMI but this was felt to be less likely by cardiology and they have recommended working up her hypoxia due to underlying lung disease. We will admit her and get further work-up including CT of the chest, ABG and consider pulmonology consult. - DVT/VTE - Prophylaxis VTE/DVT Device ordered at admit?: Yes VTE/DVT Prophylaxis med ordered at admit?: Yes
[2021-08-22] MEDS ORDERED: IPRATROPIUM/ALBUTEROL 3 ML NEB INH PRN (22:40)
[2021-08-23] MEDS: SODIUM CHLORIDE FLUSH 0.9% 10 ML SYRINGE IVP SCH ×3 (00:42→20:33)
[2021-08-23 01:38] LABS: ABG BASE EXCESS 6.5 mmol/L (-2.0-3.0); ABG HCO3 35.1 mmol/L (22.0-26.0); ABG OXYGEN SATURATION 92 % (94-98); ABG PH 7.34 (7.35-7.45); ABG PO2 68 mmHg (80-100); ABG TCO2 37.1 MMOL/L (21.0-29.0)
[2021-08-23 01:40] LABS: ABG PCO2 67 mmHg (34-45)
[2021-08-23] MEDS ORDERED: ALBUTEROL NEB 2.5 MG/3 ML INH PRN (01:40)
[2021-08-23 05:01] LABS: BASOPHILS % (AUTO) 0.1 %; HCT - HEMATOCRIT 51.8 % (37.0-47.0); HGB - HEMOGLOBIN 14.9 g/dL (12.0-16.0); LYMPHOCYTES % (AUTO) 7.9 %; MEAN CORPUSCULAR HEMOGLOBIN 26.2 pg (27.0-31.0); MEAN CORPUSCULAR HGB CONC 28.8 g/dL (32.0-36.0); MEAN CORPUSCULAR VOLUME 91.2 fL (81.0-99.0); MEAN PLATELET VOLUME 9.4 fL (7.9-10.8); MONOCYTES % (AUTO) 0.6 %; NEUTROPHILS % (AUTO) 90.8 %; PLT - PLATELET COUNT 227 10^3/uL (130-450); RED BLOOD COUNT 5.68 10^6/uL (4.20-5.40); RED CELL DISTRIBUTION WIDTH 15.3 % (12.0-15.0); WHITE BLOOD COUNT 7.1 x10^3/uL (4.8-10.8)
[2021-08-23 05:04] LABS: ABNORMAL LYMPHS % (MANUAL) 0 %; BAND NEUTROPHILS % (MANUAL) 0 %
[2021-08-23 05:12] LABS: CALCIUM 9.1 mg/dL (8.5-10.3); CREATININE 0.5 mg/dL (0.4-1.0)
[2021-08-23 05:34] LABS: LYMPHOCYTES # (MANUAL) 0.4 10^3/uL (1.5-3.5); LYMPHOCYTES % (MANUAL) 6 %; NEUTROPHILS # (MANUAL) 6.7 10^3/uL (1.5-6.6)
[2021-08-23 05:35] LABS: DIFFERENTIAL COMMENT MANUAL DIFFERENTIAL; PLATELET ESTIMATE, MANUAL NORMAL (130-450,000) (NORMAL); PLATELET MORPHOLOGY NORMAL APPEARANCE (NORMAL); RBC MORPHOLOGY (MULTIPLE) 1+ HYPOCHROMASIA (NORMAL); WBC MORPHOLOGY (MULTIPLE) NORMAL APPEARANCE (NORMAL)
--- NOTE | 2021-08-23 07:55 | XRAY Report ---
PROCEDURE: Chest 2 View X-Ray INDICATIONS: Hypoxia. Restrictive pattern on PFT's. TECHNIQUE: 2 view(s) of the chest. COMPARISON: August 21, 2021. FINDINGS: SUPPORT DEVICES: None. LUNG/PLEURA: The lungs are prominence of the bronchial vascular markings. Faint left basilar density, which may reflect atelectasis/scarring. Coarsened interstitial markings. No pleural effusion or pneu mothorax. MEDIASTINUM: The cardiomediastinal silhouette is partially obscured were grossly unchanged. BONES/SOFT TISSUES: No acute abnormality. IMPRESSION: 1.No acute cardiopulmonary abnormality. Reviewed by: Jt Mcneil MD on 08/23/2021 7:53 AM PDT Approved by: Jt Mcneil MD on 08/23/2021 7:53 AM PDT Station ID: [id number]
[2021-08-23] MEDS: IPRATROPIUM/ALBUTEROL 3 ML NEB INH SCH ×2 (08:15→16:00)
--- NOTE | 2021-08-23 08:24 | CT Report ---
PROCEDURE: CHEST WO INDICATIONS: Hypoxia. Restricitive lung disease. TECHNIQUE: Noncontrast 1mm axial images were acquired from the pulmonary apices to the posterior costophrenic an gles. Axial 5 mm soft tissue kernel reconstructions were performed as well as 8 mm axial MIP and cor onal and sagittal 5 mm reformations. For radiation dose reduction, the following was used: automate d exposure control, adjustment of mA and/or kV according to patient size. COMPARISON: Chest radiograph dated 08/22/[address] angiogram of chest dated 08/07/2021 FINDINGS: Image quality: Excellent. Lungs and pleura:. Compared to previous study, there is interval development of moderate-sized airspa ce opacity in right lower lobe suggestive of right lower lobe infiltrate/atelectasis. Trace right ple ural effusion is also seen. There is also smaller sized airspace opacity in left lower lobe and trace amount of left pleural effusion. There is no pneumothorax. No suspicious pulmonary nodule or mass is seen in bilateral aerated lung cullen. Subtle reticular nodular thickening in periphery of bilateral lung cullen are noted with subtle tree-in-bud appearance predominantly in bilateral upper lobes best seen on series 3 image images 18 through 20. Central and peripheral airways are patent and normal in caliber. Mediastinum: Heart size is enlarged. No pericardial effusion. No mediastinal adenopathy by size cr iteria. Thoracic aorta and central pulmonary arteries are normal in size. Esophagus is normal in ca liber. No hiatal hernia. Bones and chest wall: No suspicious bony lesions. No vertebral body compression fractures. No axil celine or supraclavicular adenopathy by size criteria. The thyroid is normal in size and there are no incidental findings. Abdomen: Visualized upper abdominal solid organs and bowel loops appear normal in the absence of con trast. IMPRESSION: 1. Trace bilateral pleural effusion with right worse than left bilateral lower lobe infiltrate/atelec tasis. 2. Subtle reticular nodular thickening in periphery of bilateral lung cullen with subtle tree-in-bud appearance more prominent in bilateral upper lobes as above. Finding likely represent distal small ai rway disease. No pneumothorax. 3. No mediastinal or hilar lymphadenopathy by size criteria. Mild cardiomegaly. No significant athero sclerotic disease. CLINICAL RECOMMENDATION STATEMENTS: In patients <35 years with an ITN detected on CT, MRI, or extrathyroidal ultrasound, the Committee re commends further evaluation with dedicated thyroid ultrasound if the nodule is "e1 cm and has no susp icious imaging features, and if the patient has normal life expectancy. In patients "e35 years with an ITN detected on CT, MRI, or extrathyroidal ultrasound, the Committee r ecommends further evaluation with dedicated thyroid ultrasound if the nodule is "e1.5 cm and has no s uspicious imaging features, and if the patient has normal life expectancy. (ACR, 2014) Reviewed by: Ag Abraham MD on 08/23/2021 8:23 AM PDT Approved by: Ag Abraham MD on 08/23/2021 8:23 AM PDT Station ID: [id number]
[2021-08-23] MEDS ORDERED: ALBUTEROL NEB 2.5 MG/3 ML INH SCH (09:00)
[2021-08-23] MEDS ORDERED: IPRATROPIUM/ALBUTEROL 3 ML NEB INH SCH (09:00)
[2021-08-23] MEDS: ASCORBIC ACID 500 MG TABLET PO SCH (09:40)
[2021-08-23] MEDS: ASPIRIN CHEW 81 MG TABLET PO SCH (09:40)
[2021-08-23] MEDS: METOPROLOL TARTRATE 25 MG TABLET PO SCH ×2 (09:41→20:34)
[2021-08-23] MEDS: hydroCHLOROthiazide 12.5 MG CAPSULE PO SCH (09:41)
[2021-08-23] MEDS: LOSARTAN 50 MG TABLET PO SCH (09:42)
[2021-08-23] MEDS: ENOXAPARIN 40 MG/0.4 ML SYRINGE SUBQ SCH (09:42)
[2021-08-23] MEDS: buPROPion SR 100 MG TABLET PO SCH (09:42)
--- NOTE | 2021-08-23 11:30 | PHARMACY PROGRESS NOTE ---
- Best Possible Medication History Admit Date and Time: 08/22/211 Processed by: Pharmacy Medication History completed: Yes Secondary Source(s): Physician records, Pharmacy records, Insurance records As the person ultimately responsible for medication therapy, providers are able to order a medication from an existing home medication list in [facility] via the "Reconcile Routine" prior to Confirmation of that medication by community support professional. Such practice is discouraged except when the physician, in their clinical judgment, deems that a medical need exists for a medication without regard to previous use.
--- NOTE | 2021-08-23 14:26 | Nuclear Medicine Report ---
PROCEDURE: Rest and exercise myocardial perfusion SPECT with gated imaging and ejection fraction INDICATIONS: ELEVASTED TROPONINS RADIOPHARMACEUTICAL: 24.7 mCi Tc-99m Myoview IV at rest and 26.9 mCi Tc-99m Myoview IV at peak exerc ise. [id number] was performed. TECHNIQUE: Radiopharmaceutical was injected at peak stress test, and also at rest. SPECT images wer e obtained. SPECT myocardial perfusion images were displayed in short axis, horizontal long axis, an d vertical long axis views. Gated images were reviewed using Auto[employer] software. COMPARISON: None available. FINDINGS: Raw data: There is good myocardial labeling by radiotracer. No significant motion artifacts. Lung- to-heart ratio is 0.27 (normal is less than 0.46 for tetrafosmin tracer). Left ventricle function: Gated images demonstrate normal left ventricle wall thickening. No segment al wall motion abnormality. No transient ischemic dilation; TID is 1.00 (normal less than 1.30). Th e left ventricle resting end-diastolic volume is is normal. Left ventricle stress ejection fraction is >70%; normal values are above 45%. Myocardial perfusion: There is reversible perfusion defect in the basal lateral inferior wall, consi stent with myocardial ischemia. IMPRESSION: 1. Abnormal myocardial perfusion images. There is a small, mild, basal lateral inferior wall reversib le perfusion defect consistent with myocardial ischemia. 2. Normal left ventricular volume and systolic function. 3. Please correlate with stress EKG result. The result is discussed with Dr. Ahn. PQRS ATTESTATIONS: Measure 322 - Is this imaging test primarily performed on a low-risk surgery patient for preoperative evaluation within 30 days preceding their low-risk non-cardiac surgery? Low-risk surgery is defined as cardiac or myocardial infarction less than 1%, including (but not limited to) endoscopic pr ocedures, superficial procedures, cataract surgery, and excisional breast surgery: Answer: No Measure 323 - Is this imaging test performed primarily for the monitoring of an asymptomatic patient who had percutaneous coronary intervention on the visit date or within 2 years of the visit date? An swer: No Measure 324 - Is this imaging test performed primarily for the initial detection and risk assessment on an asymptomatic, low coronary heart disease patient? Low CHD risk definition = clinicians should consider the maximum number of available patient factors used to estimate risk based on [place] (A TP III criteria), typically age, gender, diabetes, smoking status, and use of blood pressure medicati on, and integrate age appropriate estimates for missing elements, such as LDL or standard blood press ure. Answer: No Reviewed by: Jonathan Chun MD on 08/23/2021 2:24 PM PDT Approved by: Jonathan Chun MD on 08/23/2021 2:24 PM PDT Station ID: [id number]
[2021-08-23] MEDS: CEFTRIAXONE IV SCH (20:15)
[2021-08-23] MEDS: SODIUM CHLORIDE 0.9% IV SCH (20:15)
[2021-08-23] MEDS: ATORVASTATIN 40 MG TABLET PO SCH (20:34)
[2021-08-23] MEDS: AZITHROMYCIN INJ 500 MG in SODIUM CHLORIDE 0.9% 250 ML IV SCH (20:48)
[2021-08-24] MEDS: SODIUM CHLORIDE FLUSH 0.9% 10 ML SYRINGE IVP SCH ×3 (00:26→16:53)
[2021-08-24] MEDS: IPRATROPIUM/ALBUTEROL 3 ML NEB INH SCH ×6 (00:35→21:20)
[2021-08-24 05:28] LABS: BASOPHILS % (AUTO) 0.3 %; EOSINOPHILS % (AUTO) 0.1 %; HCT - HEMATOCRIT 49.9 % (37.0-47.0); HGB - HEMOGLOBIN 14.2 g/dL (12.0-16.0); LYMPHOCYTES # (AUTO) 1.5 10^3/uL (1.5-3.5); LYMPHOCYTES % (AUTO) 21.1 %; MEAN CORPUSCULAR HEMOGLOBIN 26.5 pg (27.0-31.0); MEAN CORPUSCULAR HGB CONC 28.5 g/dL (32.0-36.0); MEAN CORPUSCULAR VOLUME 93.3 fL (81.0-99.0); MEAN PLATELET VOLUME 9.7 fL (7.9-10.8); MONOCYTES # (AUTO) 0.5 10^3/uL (0.0-1.0); NEUTROPHILS % (AUTO) 71.1 %; PLT - PLATELET COUNT 218 10^3/uL (130-450); RED BLOOD COUNT 5.35 10^6/uL (4.20-5.40); RED CELL DISTRIBUTION WIDTH 15.6 % (12.0-15.0)
[2021-08-24 05:37] LABS: CREATININE 0.6 mg/dL (0.4-1.0); POTASSIUM 4.8 mmol/L (3.5-5.0)
[2021-08-24] MEDS: hydroCHLOROthiazide 12.5 MG CAPSULE PO SCH (09:29)
[2021-08-24] MEDS: buPROPion SR 100 MG TABLET PO SCH (09:29)
[2021-08-24] MEDS: LOSARTAN 50 MG TABLET PO SCH (09:29)
[2021-08-24] MEDS: ASCORBIC ACID 500 MG TABLET PO SCH (09:30)
[2021-08-24] MEDS: METOPROLOL TARTRATE 25 MG TABLET PO SCH ×2 (09:30→20:53)
[2021-08-24] MEDS: ASPIRIN CHEW 81 MG TABLET PO SCH (09:30)
[2021-08-24] MEDS: SODIUM CHLORIDE 0.9% IV SCH (09:31)
[2021-08-24] MEDS: CEFTRIAXONE IV SCH (09:31)
[2021-08-24] MEDS: ENOXAPARIN 40 MG/0.4 ML SYRINGE SUBQ SCH (09:34)
[2021-08-24] MEDS: AZITHROMYCIN INJ 500 MG in SODIUM CHLORIDE 0.9% 250 ML IV SCH (10:41)
--- NOTE | 2021-08-24 18:17 | PROVIDER PROGRESS NOTE ---
Subjective - Prog Note Date Prog Note Date: 08/24/21 Prog Note Time: 18:12 - Subjective Pt reports feeling: No change Current Medications - Current Medications Current Medications: Active Medications Acetaminophen (Acetaminophen 325 Mg Tablet) 650 mg PO Q4HR PRN PRN Reason: Pain 1 to 4 Albuterol (Albuterol Neb 2.5 Mg/3 Ml) 2.5 mg INH Q4HR PRN PRN Reason: Dyspnea Albuterol/Ipratropium (Ipratropium/Albuterol 3 Ml Neb) 3 ml INH RTQID [facility] Last Admin: 08/24/21 15:25 Dose: 3 ml Documented by: Ascorbic Acid (Ascorbic Acid 500 Mg Tablet) 500 mg PO DAILY [facility] Last Admin: 08/24/21 09:30 Dose: 500 mg Documented by: Aspirin (Aspirin Chew 81 Mg Tablet) 81 mg PO DAILY [facility] Last Admin: 08/24/21 09:30 Dose: 81 mg Documented by: Atorvastatin Calcium (Atorvastatin 40 Mg Tablet) 40 mg PO QPM [facility] Last Admin: 08/23/21 20:34 Dose: 40 mg Documented by: Bupropion HCl (Bupropion Sr 100 Mg Tablet) 100 mg PO DAILY [facility] Last Admin: 08/24/21 09:29 Dose: 100 mg Documented by: Enoxaparin Sodium (Enoxaparin 40 Mg/0.4 Ml Syringe) 40 mg SUBQ DAILY [facility] Last Admin: 08/24/21 09:34 Dose: 40 mg Documented by: Hydrochlorothiazide (Hydrochlorothiazide 12.5 Mg Capsule) 12.5 mg PO DAILY [facility] Last Admin: 08/24/21 09:29 Dose: 12.5 mg Documented by: Azithromycin 500 mg/ Sodium (Chloride) 250 mls @ 250 mls/hr IV DAILY [facility] Stop: 08/25/21 09:59 Last Infusion: 08/24/21 11:45 Dose: Infused Documented by: Ceftriaxone Sodium 1 gm/ (Sodium Chloride) 100 mls @ 200 mls/hr IV DAILY [facility] Stop: 08/27/21 09:29 Losartan Potassium (Losartan 50 Mg Tablet) 25 mg PO DAILY [facility] Last Admin: 08/24/21 09:29 Dose: 25 mg Documented by: Metoprolol Tartrate (Metoprolol Tartrate 25 Mg Tablet) 25 mg PO BID [facility] Last Admin: 08/24/21 09:30 Dose: 25 mg Documented by: Ondansetron HCl (Ondansetron Odt 4 Mg Tablet) 4 mg TL Q6HR PRN PRN Reason: Nausea / Vomiting Ondansetron HCl (Ondansetron 4 Mg/2 Ml Vial) 4 mg IVP Q6HR PRN PRN Reason: Nausea / Vomiting Sodium Chloride (Sodium Chloride Flush 0.9% 10 Ml Syringe) 10 ml IVP PRN PRN PRN Reason: NEEDED PER PROVIDER ORDERS Sodium Chloride (Sodium Chloride Flush 0.9% 10 Ml Syringe) 10 ml IVP 0100,0900,1700 [facility] Last Admin: 08/24/21 16:53 Dose: 10 ml Documented by: Ascorbic Acid [Vitamin C] 1 tab PO DAILY 06/03/16 B12/Levomefolate Calcium/B-6 [Foltx Tablet] 1 tab PO DAILY 06/03/16 Calcium Citrate/Magnesium/D3 [Calcium Citrate Chewable Wafer] 1 tab PO DAILY 06/03/16 Multivit with Calcium,Iron,Min [Multiple Vitamins For Women] 1 tab PO DAILY 06/03/16 buPROPion HCl [Bupropion HCl Sr] 100 mg PO DAILY 12/22/19 Albuterol Sulfate [Proair Hfa Inhaler] 2 puffs IH Q4HR PRN 08/22/21 Aspirin [[place] Aspirin] 81 mg PO DAILY 08/22/21 Losartan Potassium 25 mg PO DAILY 08/22/21 hydroCHLOROthiazide [Hydrodiuril] 12.5 mg PO DAILY 08/22/21 Fluticasone Propion/Salmeterol [Fluticasone-Salmeterol 500-50] 1 puffs INH BID 08/23/21 Objective - Vital Signs/Intake & Output Reviewed Vital Signs: Yes Vital Signs: Vital Signs x48h Temp Pulse Pulse Resp BP Pulse Ox 08/24/21 16:43 37.8 C 55 L 18 107/68 93 08/24/21 15:30 88 20 08/24/21 15:27 36.8 C 70 18 92 08/24/21 13:00 36.8 C 73 20 104/65 92 Intake & Output: Intake & Output 08/21/21 08/22/21 08/23/21 08/24/21 23:59 23:59 23:59 23:59 Intake Total 651.025 325 8225 Output Total 450 Balance 201.527 945 1495 - Objective General Appearance: positive: Alert, Mild distress (Get short of breath. Nasal tone of voice. Easily fatigued. No chest pain.) Eyes Bilateral: positive: PERRL, EOMI ENT: positive: Pharynx nml Neck: positive: No JVD. negative: Stiff neck Respiratory: positive: Rales, Rhonchi Cardiovascular: positive: Regular rate & rhythm. negative: Gallop/S4, Friction rub Abdomen: positive: Non-tender, No organomegaly, Nml bowel sounds, No distention Skin: positive: Warm, Dry Extremities: positive: Full ROM, No pedal edema Neurologic/Psychiatric: positive: Oriented x3, CN's nml (2-12), Motor nml, Sensation nml - Lab Results Fish Bones: 08/24/21 05:15 08/24/21 05:15 Other Labs: Lab Results x24hrs 08/24/21 08/24/21 Range/Units 05:15 05:15 WBC 7.0 (4.8-10.8) x10^3/uL RBC 5.35 (4.20-5.40) 10^6/uL Hgb 14.2 (12.0-16.0) g/dL Hct 49.9 H (37.0-47.0) % MCV 93.3 (81.0-99.0) fL MCH 26.5 L (27.0-31.0) pg MCHC 28.5 L (32.0-36.0) g/dL RDW 15.6 H (12.0-15.0) % Plt Count 218 (130-450) 10^3/uL MPV 9.7 (7.9-10.8) fL Neut # (Auto) 5.0 (1.5-6.6) 10^3/uL Lymph # (Auto) 1.5 (1.5-3.5) 10^3/uL [place] # (Auto) 0.5 (0.0-1.0) 10^3/uL Eos # (Auto) 0.0 (0.0-0.7) 10^3/uL Baso # (Auto) 0.0 (0.0-0.1) 10^3/uL Absolute Nucleated RBC 0.00 x10^3/uL Nucleated RBC % 0.0 /100WBC Sodium 138 (135-145) mmol/L Potassium 4.8 (3.5-5.0) mmol/L Chloride 91 L (101-111) mmol/L Carbon Dioxide 38 H (21-32) mmol/L Anion Gap 9.0 (6-13) BUN 19 (6-20) mg/dL Creatinine 0.6 (0.4-1.0) mg/dL Estimated GFR (MDRD) 103 (>89) Glucose 110 H (70-100) mg/dL Calcium 9.0 (8.5-10.3) mg/dL ABX Reporting Has patient been on IV antibiotics over the past 48 hours?: Yes Assessment/Plan - Problem List (1) Acute respiratory failure with hypoxia Impression: She is still hypoxic but down to 2L from 4L of oxygen to maintain her oxygen saturations. Her most recent pulmonary function testing suggested a restrictive pattern. Her chest x-ray could not rule out an infiltrate but her white count is normal. She had a CT angiogram recently which showed no evidence of pulmon vita embolism and showed evidence of bibasilar atelectasis. her hypoxia was thought to be related to her restrictive lung disease which may be due to underlying obesity or potentially a neuromuscular disorder. The plan will be to continue her on submental oxygen for goal saturation greater than 88%. We will repeat a two-view chest x-ray and if there is evidence of an infiltrate we will start her on antibiotics empirically. We will also look to obtain a high- resolution CT of the chest to better evaluate the lung pleura. She already had an echocardiogram and the echocardiogram had an ejection fraction of 55 to 60%. On the stress test her ejection fraction is in the mid 70s and we do not suspect that her hypoxia is of cardiac origin. Since she has improved. We will keep her on 2 L. Most pressing now is the positive stress test that has reversible ischemia in the inferior wall. CT shows trace bilateral pleural effusions with right worse than left bilateral lower lobe infiltrates/atelectasis. Subtle reticular nodular thickening in the periphery of bilateral lung cullen with subtle tree-in-bud appearance more prominent in bilateral upper lobes. No mediastinal or hilar lymphadenopathy. When compared to the previous study August 07 there is been interval development of moderate sized airspace opacity in the right lower lobe suggesting right lower lobe infiltrate/atelectasis. She is already on azithromycin and ceftriaxone. Today is day 2 of azithromycin. Plan for 3 days. Ceftriaxone is day 2 as well. (2) Probable NSTEMI with reversible ischemia on Stress Test. Conclusion/Plan: Her troponin was noted to be elevated initially in the 250s. She was started on heparin and underwent a stress test 08/22 which showed no obvious evidence of ischemia on EKG although the myocardial perfusion imaging suggested a small defect. This is per the emergency department physician as I do not have the report available. At that time was discussed with cardiology on-call for [place] but the final report was not available, who felt that the patient did not need to be transferred for a catheterization and that the heparin drip could be discontinued and the patient seen on an outpatient basis. We will complete the resting portion of the stress test yesterday morning. Unfortunately the final report came back as reversible ischemia of the inferior wall. This was shared with both the patient and her . They are understandably anxious to have resolution to this problem. We kept patient on aspirin and start her on Lipitor as well. We Also initiated beta-gloria. RANDY inhibitor. I rediscussed the case with [place] cardiology on-call today. They do feel the patient warrants a transfer to a higher level of care for coronary angiogram. I have been speaking to Jodee, the case briefer for inpatient transfer. Maria Del Carmen brarunately she is on the waiting list for 4 different facilities. We will rediscuss tomorrow morning. At this time the patient is stable. No arrhythmia. Improving oxygenation. (3) Restrictive lung disease Conclusion/Plan: She had pulmonary function testing which suggested a restrictive pattern. The etiology of this is not clear although could be related to her obesity. She does not appear to have an underlying neuromuscular disorder.High-resolution CT of the chest is discussed above. She will need pulmonology follow-up. (4) Hypertension Conclusion/Plan: She was hypertensive with systolic in the 140s. We resumed her home losartan and hydrochlorothiazide but now 104-107. Cut back on losartan.
[2021-08-24] MEDS: ATORVASTATIN 40 MG TABLET PO SCH (21:09)
[2021-08-25] MEDS: SODIUM CHLORIDE FLUSH 0.9% 10 ML SYRINGE IVP SCH ×3 (00:27→17:28)
[2021-08-25 06:22] LABS: BASOPHILS % (AUTO) 0.5 %; EOSINOPHILS # (AUTO) 0.2 10^3/uL (0.0-0.7); EOSINOPHILS % (AUTO) 2.9 %; HCT - HEMATOCRIT 49.3 % (37.0-47.0); HGB - HEMOGLOBIN 13.9 g/dL (12.0-16.0); LYMPHOCYTES # (AUTO) 1.3 10^3/uL (1.5-3.5); LYMPHOCYTES % (AUTO) 20.9 %; MEAN CORPUSCULAR HEMOGLOBIN 26.3 pg (27.0-31.0); MEAN CORPUSCULAR HGB CONC 28.2 g/dL (32.0-36.0); MEAN CORPUSCULAR VOLUME 93.4 fL (81.0-99.0); MEAN PLATELET VOLUME 9.1 fL (7.9-10.8); MONOCYTES # (AUTO) 0.5 10^3/uL (0.0-1.0); MONOCYTES % (AUTO) 7.5 %; NEUTROPHILS # (AUTO) 4.2 10^3/uL (1.5-6.6); NEUTROPHILS % (AUTO) 67.7 %; PLT - PLATELET COUNT 209 10^3/uL (130-450); RED BLOOD COUNT 5.28 10^6/uL (4.20-5.40); RED CELL DISTRIBUTION WIDTH 15.6 % (12.0-15.0); WHITE BLOOD COUNT 6.1 x10^3/uL (4.8-10.8)
[2021-08-25 06:32] LABS: CREATININE 0.6 mg/dL (0.4-1.0); POTASSIUM 4.6 mmol/L (3.5-5.0)
[2021-08-25] MEDS: IPRATROPIUM/ALBUTEROL 3 ML NEB INH SCH ×4 (07:20→21:08)
[2021-08-25] MEDS ORDERED: polyethylene glycoL 3350 17 GM PACKET PO SCH (09:00)
[2021-08-25] MEDS ORDERED: cefTRIAXone 1 GM in SODIUM CHLORIDE 0.9% MINIBAG 100 ML IV SCH (09:00)
[2021-08-25] MEDS: ASCORBIC ACID 500 MG TABLET PO SCH (09:20)
[2021-08-25] MEDS: ASPIRIN CHEW 81 MG TABLET PO SCH (09:20)
[2021-08-25] MEDS: LOSARTAN 50 MG TABLET PO SCH (09:21)
[2021-08-25] MEDS: buPROPion SR 100 MG TABLET PO SCH (09:21)
[2021-08-25] MEDS: METOPROLOL TARTRATE 25 MG TABLET PO SCH ×2 (09:21→20:56)
[2021-08-25] MEDS: hydroCHLOROthiazide 12.5 MG CAPSULE PO SCH (09:23)
[2021-08-25] MEDS: ENOXAPARIN 40 MG/0.4 ML SYRINGE SUBQ SCH (09:30)
[2021-08-25] MEDS: AZITHROMYCIN INJ 500 MG in SODIUM CHLORIDE 0.9% 250 ML IV SCH (10:04)
--- NOTE | 2021-08-25 16:28 | PROVIDER PROGRESS NOTE ---
Subjective - Prog Note Date Prog Note Date: 08/25/21 Prog Note Time: 12:00 - Subjective Subjective: Long talk with her and her today. 6-month history of dyspnea on exertion. Around February she could really tell that she could not walk with her friends. 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 She just did not have the energy and was taking forever to finish. Then 4 weeks ago increasing cough, severe shortness of breath. All of this has been accompanied by chest tightness with exertion. 4 of her 8 siblings have had heart disease. Her sister has had the exact same presentation so the patient is very fixated that all of her problems are from her heart. I spent 30 to 45 minutes going over her CAT scan, anatomy, and that she has 2 problems. One is her lung and what is her heart. She has a severe restrictive defect on PFTs. With some obstruction and FEV1 over FVC of 75%. DLCO is 60% of normal. Every time she gets up and walks in the room she gets that same chest tightness that she associates with her heart. Current Medications - Current Medications Current Medications: Active Medications Acetaminophen (Acetaminophen 325 Mg Tablet) 650 mg PO Q4HR PRN PRN Reason: Pain 1 to 4 Albuterol (Albuterol Neb 2.5 Mg/3 Ml) 2.5 mg INH Q4HR PRN PRN Reason: Dyspnea Albuterol/Ipratropium (Ipratropium/Albuterol 3 Ml Neb) 3 ml INH RTQID [facility] Last Admin: 08/25/21 15:15 Dose: 3 ml Documented by: Ascorbic Acid (Ascorbic Acid 500 Mg Tablet) 500 mg PO DAILY [facility] Last Admin: 08/25/21 09:20 Dose: 500 mg Documented by: Aspirin (Aspirin Chew 81 Mg Tablet) 81 mg PO DAILY [facility] Last Admin: 08/25/21 09:20 Dose: 81 mg Documented by: Atorvastatin Calcium (Atorvastatin 40 Mg Tablet) 40 mg PO QPM [facility] Last Admin: 08/24/21 21:09 Dose: 40 mg Documented by: Bupropion HCl (Bupropion Sr 100 Mg Tablet) 100 mg PO DAILY [facility] Last Admin: 08/25/21 09:21 Dose: 100 mg Documented by: Enoxaparin Sodium (Enoxaparin 40 Mg/0.4 Ml Syringe) 40 mg SUBQ DAILY [facility] Last Admin: 10/17/21 09:30 Dose: 40 mg Documented by: Hydrochlorothiazide (Hydrochlorothiazide 12.5 Mg Capsule) 12.5 mg PO DAILY [facility] Last Admin: 08/25/21 09:23 Dose: 12.5 mg Documented by: Ceftriaxone Sodium 1 gm/ (Sodium Chloride) 100 mls @ 200 mls/hr IV DAILY [facility] Stop: 08/27/21 09:29 Last Infusion: 08/25/21 10:03 Dose: Infused Documented by: Losartan Potassium (Losartan 50 Mg Tablet) 25 mg PO DAILY [facility] Last Admin: 08/25/21 09:21 Dose: 25 mg Documented by: Metoprolol Tartrate (Metoprolol Tartrate 25 Mg Tablet) 25 mg PO BID [facility] Last Admin: 08/25/21 09:21 Dose: 25 mg Documented by: Ondansetron HCl (Ondansetron Odt 4 Mg Tablet) 4 mg TL Q6HR PRN PRN Reason: Nausea / Vomiting Ondansetron HCl (Ondansetron 4 Mg/2 Ml Vial) 4 mg IVP Q6HR PRN PRN Reason: Nausea / Vomiting Polyethylene Glycol (Polyethylene Glycol 3350 17 Gm Packet) 17 gm PO DAILY [facility] Last Admin: 08/25/21 09:21 Dose: Not Given Documented by: Sodium Chloride (Sodium Chloride Flush 0.9% 10 Ml Syringe) 10 ml IVP PRN PRN PRN Reason: NEEDED PER PROVIDER ORDERS Sodium Chloride (Sodium Chloride Flush 0.9% 10 Ml Syringe) 10 ml IVP 0100, 0900,1700 [facility] Last Admin: 08/25/21 17:28 Dose: 10 ml Documented by: Ascorbic Acid [Vitamin C] 1 tab PO DAILY 06/03/16 B12/Levomefolate Calcium/B-6 [Foltx Tablet] 1 tab PO DAILY 06/03/16 Calcium Citrate/Magnesium/D3 [Calcium Citrate Chewable Wafer] 1 tab PO DAILY 06/03/16 Multivit with Calcium,Iron,Min [Multiple Vitamins For Women] 1 tab PO DAILY 06/03/16 buPROPion HCl [Bupropion HCl Sr] 100 mg PO DAILY 12/22/19 Albuterol Sulfate [Proair Hfa Inhaler] 2 puffs IH Q4HR PRN 08/22/21 Aspirin [[place] Aspirin] 81 mg PO DAILY 08/22/21 Losartan Potassium 25 mg PO DAILY 08/22/21 hydroCHLOROthiazide [Hydrodiuril] 12.5 mg PO DAILY 08/22/21 Fluticasone Propion/Salmeterol [Fluticasone-Salmeterol 500-50] 1 puffs INH BID 08/23/21 Objective - Vital Signs/Intake & Output Reviewed Vital Signs: Yes Vital Signs: Vital Signs x48h Temp Pulse Pulse Pulse Resp BP BP 08/25/21 15:43 36.9 C 85 20 114/70 08/25/21 15:20 104 H 22 08/25/21 13:00 37.2 C 78 22 110/70 08/25/21 10:55 76 18 08/25/21 08:29 37 C 75 24 128/90 H Pulse Ox 08/25/21 15:43 92 08/25/21 15:20 08/25/21 13:00 93 08/25/21 10:55 08/25/21 08:29 93 Intake & Output: Intake & Output 08/22/21 08/23/21 08/24/21 08/25/21 23:59 23:59 23:59 23:59 Intake Total 651.950 673 5217 1880 Output Total 450 Balance 201.142 033 8490 1880 - Objective General Appearance: positive: Alert, Mild distress Eyes Bilateral: positive: PERRL, EOMI ENT: positive: No signs of dehydration Neck: positive: No JVD. negative: Stiff neck Respiratory: positive: Rales, Rhonchi, Other (When she gets excited she gets a little bit tachypneic. In my effort to wake her up from her deep sleep, she was having apnea and snoring) Cardiovascular: positive: Regular rate & rhythm. negative: Gallop/S4, Friction rub Abdomen: positive: Non-tender, No organomegaly, Nml bowel sounds, No distention Skin: positive: Warm, Dry Extremities: positive: Full ROM, Pedal edema Neurologic/Psychiatric: positive: Oriented x3, CN's nml (2-12), Motor nml, Other (It took me 35 to 40 seconds of shaking her shoulder to wake her up. Very very sleepy.) - Lab Results Fish Bones: 08/25/21 05:45 08/25/21 05:45 Other Labs: Lab Results x24hrs 08/25/21 08/25/21 Range/Units 05:45 05:45 WBC 6.1 (4.8-10.8) x10^3/uL RBC 5.28 (4.20-5.40) 10^6/uL Hgb 13.9 (12.0-16.0) g/dL Hct 49.3 H (37.0-47.0) % MCV 93.4 (81.0-99.0) fL MCH 26.3 L (27.0-31.0) pg MCHC 28.2 L (32.0-36.0) g/dL RDW 15.6 H (12.0-15.0) % Plt Count 209 (130-450) 10^3/uL MPV 9.1 (7.9-10.8) fL Neut # (Auto) 4.2 (1.5-6.6) 10^3/uL Lymph # (Auto) 1.3 L (1.5-3.5) 10^3/uL Morris # (Auto) 0.5 (0.0-1.0) 10^3/uL Eos # (Auto) 0.2 (0.0-0.7) 10^3/uL Baso # (Auto) 0.0 (0.0-0.1) 10^3/uL Absolute Nucleated RBC 0.00 x10^3/uL Nucleated RBC % 0.0 /100WBC Sodium 138 (135-145) mmol/L Potassium 4.6 (3.5-5.0) mmol/L Chloride 91 L (101-111) mmol/L Carbon Dioxide 40 H* (21-32) mmol/L Anion Gap 7.0 (6-13) BUN 16 (6-20) mg/dL Creatinine 0.6 (0.4-1.0) mg/dL Estimated GFR (MDRD) 103 (>89) Glucose 101 H (70-100) mg/dL Calcium 9.0 (8.5-10.3) mg/dL ABX Reporting Has patient been on IV antibiotics over the past 48 hours?: Yes Assessment/Plan - Problem List (1) Acute respiratory failure with hypoxia Impression: She is still hypoxic but down to 2L from 4L of oxygen to maintain her oxygen saturations. She has stayed at 2 liters for 2 days now. Her most recent pulmonary function testing suggested a restrictive AND obstructive pattern. Her chest x-ray could not rule out an infiltrate but her white count is normal. She had a CT angiogram recently which showed no evidence of pulmonary embolism and showed evidence of bibasilar atelectasis. her hypoxia was thought to be related to her restrictive lung disease which may be due to underlying obesity or potentially a neuromuscular disorder. The plan will be to continue her on submental oxygen for goal saturation greater than 88%We repeated a two-view chest x-ray to see if there was evidence of an infiltrate and we did a high resolution CT. She already had an echocardiogram and the echocardiogram had an ejection fraction of 55 to 60%. On the stress test her ejection fraction is in the mid 70s and on admission 08/22 we did not suspect that her hypoxia is of cardiac origin. When admitted cyanotic and struggling and she has definitely improved from that. We will keep her on 2 L. Most pressing now is the positive stress test that has reversible ischemia in the inferior wall. CT 08/23 shows trace bilateral pleural effusions with right worse than left bilateral lower lobe infiltrates/atelectasis. Subtle reticular nodular thickening in the periphery of bilateral lung cullen with subtle tree-in-bud appearance more prominent in bilateral upper lobes. There is a suggestion of RLL infiltrate. No mediastinal or hilar lymphadenopathy. When compared to the previous study August 07 there is been interval development of moderate sized airspace opacity in the right lower lobe suggesting right lower lobe infiltrate/atelectasis. She is already on azithromycin and ceftriaxone. Today is day 3 of azithromycin. Plan for 3 days. Ceftriaxone is day 3 as well. (2) Probable NSTEMI with reversible ischemia on Stress Test. Conclusion/Plan: Her troponin was noted to be elevated initially in the 250s. She was started on heparin and underwent a stress test 08/22 which showed no obvious evidence of ischemia on EKG although the myocardial perfusion imaging suggested a small defect. This is per the emergency department physician as I do not have the report available. At that time was discussed with cardiology on-call for [facility] but the final report was not available, who felt that the patient did not need to be transferred for a catheterization and that the heparin drip could be discontinued and the patient seen on an outpatient basis. We will complete the resting portion of the stress test yesterday morning. Unfortunately the final report came back as reversible ischemia of the inferior wall. This was shared with both the patient and her . They are understandably anxious to have resolution to this problem. We kept patient on aspirin and start her on Lipitor as well. We Also initiated beta-gloria. RANDY inhibitor. I rediscussed the case with [facility] cardiology on-call 08/24. They do feel the patient warrants a transfer to a higher level of care for coronary angiogram. I have been speaking to Jodee, the patient case coordinator for inpatient transfer. Unfortunately she is on the waiting list for 4 different facilities. I redi scussed the case with Penny, the new patient case coordinator for inpatient transfer today. Penny put me in contact with Dr. Lin at [facility]. Dr. Lin has accepted the patient in transfer. But she is warning me that there are no beds available. They will try to get her there when I have some bed availability. Dr. Lin is a hospitalist. She asked us to fax the discharge summary to [phone] (3) Obstructive and Restrictive lung disease Conclusion/Plan: She had pulmonary function testing which suggested a restrictive pattern on graph. The written report suggest obstruction but what I see is severe restriction. The etiology of this is not clear although could be related to her obesity. She does not appear to have an underlying neuromuscular disorder.High-resolution CT of the chest is discussed above. She will need pulmonology follow-up. (4) Hypertension Conclusion/Plan: She was hypertensive with systolic in the 140s. We resumed her home losartan and hydrochlorothiazide but now 104-107. Cut back on losartan.
--- NOTE | 2021-08-25 20:38 | DISCHARGE SUMMARY ---
"Discharge Summary Admit Date: 08/22/21 Discharge Date: 08/25/21 Discharging Provider: Ruiz Vázquez Primary Care Provider: Lisa Parada Code Status: Attempt Resuscitation Condition at Discharge: Stable Discharge Disposition: 02 Transfer Acute Care Hosp Discharge Facility Name: [facility] - DIAGNOSES Admission Diagnoses: Acute respiratory failure with hypoxia Demand ischemia History of lung disease Hypertension Discharge Diagnoses with Status of Each Condition: Acute respiratory failure with hypoxia - improved. NSTEMI - stable. Restrictive lung disease - ongoing. Hypertension - stable. - HPI History of Present Illness: This is a 56-year-old female with a past medical history significant for hypertension who presents complaining of worsening dyspnea. She states that she has felt short of breath for the past 6 months but it has really progressed over the past 4 to 6 weeks to the point where she can barely exert herself and now even feels dyspneic just at rest. She follow-up with her primary care provider who ordered a CT angiogram of the chest which showed no evidence of pulmonary embolism but revealed bibasilar atelectasis. She had pulmonary function testing which suggested restrictive lung disease. She reports that she felt some relief with albuterol but she still felt quite dyspneic. She then began to notice that her lips became purple and that she was a little more confused at times and so she came to the emergency department. She states she has had occasional chest pain which is most prominent with deep inspiration and occasionally with activity. She has no chest pain at rest. She has had a nonproductive cough. She reports no fevers or chills. Denies nausea, vomiting, diarrhea. She denies any focal weakness or numbness. She did smoke about a pack a week for 10 years but quit over 25 years ago. Denies illicit drug use. She has not seen a philosophy specialist or audit clerk. She reports family history of coronary artery disease. In the emergency department, she was noted to have elevated troponin in the 250s. Initial concern was for NSTEMI and so she was started on heparin and cardiology was contacted for transfer. Unfortunately it was difficult to obtain a bed and she remained hospitalized overnight. She underwent a stress test today which did not suggest ischemia although reportedly the myocardial per fusion images suggested an area of ischemia over the anterior wall although this appeared quite mild. This finding was discussed with cardiology by the emergency department physician and they felt that there was no need to transfer to high-level care for cardiac catheterization and that the heparin drip can be discontinued and she can follow-up on outpatient basis. Given the patient is still hypoxic, medicine was consulted for admission. - CONSULTS | PROCEDURES Procedures: Lexiscan stress test showed a normal resting EKG. Hypertensive at rest with nor mal blood pressure response to pharmacologic agent. No ischemic changes by EKG criteria were seen at peak stress. Nuclear image interpretation will be reported separately. Myocardial perfusion imaging revealed abnormal myocardial perfusion images. There is a small, mild, basal lateral inferior wall reversible perfusion defect consistent with myocardial ischemia. Normal left-ventricular volume and systolic function. Echocardiogram on August 22 revealed an ejection fraction of 55 to 60%. Right ventricle is normal in size and function. Trace tricuspid regurgitation normal right ventricular systolic pressure. The inferior vena cava is dilated suggesting elevated CVP. No significant valvular disease. - HOSPITAL COURSE Hospital Course: She was admitted to the floor after she had been in the emergency department for 24 hours. The initial concern was for NSTEMI and she underwent a stress test while in the emergency department which suggested mild reversible ischemia. She was started on heparin in the emergency department. The plan was to transfer her for cardiac catheterization but after discussion with cardiology, it was felt that a catheterization would not be necessary at this time and the patient can be followed on outpatient basis. They also recommended discontinuing the heparin. Given she was hypoxic, medicine was then consulted for admission. We obtained a 2 view chest x-ray which showed no acute abnormalities. She is to remain hypoxic requiring 4 L of oxygen which was felt related to her restrictive lung disease. The etiology of this was not clear. We ordered a high-resolution CT of the chest. This revealed trace bilateral pleural effusion with right worse than left and likely bilateral lower lobe infiltrate/atelectasis. There was also subtle reticulonodular thickening in the periphery of bilateral lung cullen with subtle tree-in-bud appearance more prominent in bilateral upper lobes. Findings likely represent distal small airway disease. No pneumothorax. Although she had no fever or white count, given the possible infiltrates in her hypoxia, she was started on azithromycin and ceftriaxone for community-acquired pneumonia. Her oxygenation improved to 2 L from 4 L. The official stress test report returned the following day which suggested a small, mild, basal lateral inferior wall reversible perfusion defect consistent with myocardial and ischemia. This was once again discussed with cardiology at [facility] who felt that transfer for catheterization is warranted. Unfortunately there was no bed available at that time. The patient was medically managed in the interim with aspirin, Lipitor, metoprolol. She was not resumed on heparin. A bed became available today at [facility] and my colleague, Dr. Ahn, spoke with Dr. Lin of the hospitalist service. Dr. Lin graciously excepted the patient in transfer. Today is day 3 of antibiotics and will be the last day of the azithromycin. There are 2 days remaining for the ceftriaxone. Ultimately, the patient is being transferred for cardiology evaluation and pulmonology evaluation due to her underlying restrictive lung disease. She is discharged in a stable condition via ALS. - ALLERGIES Allergies/Adverse Reactions: Allergies Allergy/AdvReac Type Severity Reaction Status Date / Time No Known Drug Allergies Allergy Verified 08/21/21 18:07 - MEDICATIONS Home Medications: Ambulatory Orders Medication Instructions Recorded Confirmed Ascorbic Acid [Vitamin C] 1 tab PO DAILY 06/03/16 08/22/21 B12/Levomefolate Calcium/B-6 1 tab PO DAILY 06/03/16 08/22/21 [Foltx Tablet] Calcium Citrate/Magnesium/D3 1 tab PO DAILY 06/03/16 08/22/21 [Calcium Citrate Chewable Wafer] Multivit with Calcium,Iron,Min 1 tab PO DAILY 06/03/16 08/22/21 [Multiple Vitamins For Women] buPROPion HCl [Bupropion HCl Sr] 100 mg PO DAILY 12/22/19 08/22/21 Albuterol Sulfate [Proair Hfa 2 puffs IH Q4HR PRN 08/22/21 08/22/21 Inhaler] Aspirin [[place] Aspirin] 81 mg PO DAILY 08/22/21 08/22/21 Losartan Potassium 25 mg PO DAILY 08/22/21 08/22/21 hydroCHLOROthiazide [Hydrodiuril] 12.5 mg PO DAILY 08/22/21 08/22/21 Fluticasone Propion/Salmeterol 1 puffs INH BID 08/23/21 08/23/21 [Fluticasone-Salmeterol 500-50] - PHYSICAL EXAM AT DISCHARGE General Appearance: positive: No acute distress, Alert Eyes Bilateral: positive: Normal inspection, Conjunctivae nml ENT: positive: ENT inspection nml, Other (Nasal cannula in place.) Neck: positive: Nml inspection Respiratory: positive: No respiratory distress, Other (Diminished bilaterally.). negative: Wheezes, Rales Cardiovascular: positive: Regular rate & rhythm. negative: Irregularly irregular, Tachycardia Abdomen: positive: Non-tender, No distention. negative: Tenderness Skin: positive: Warm, Dry Extremities: positive: Pedal edema (Trace edema in bilateral lower extremities.) Neurologic/Psychiatric: positive: Motor nml. negative: Disoriented to person, Disoriented to place, Disoriented to time Physical Exam Other/Comments: Vital Signs - 24 hr 08/24/21 08/24/21 08/25/21 21:00 21:16 00:25 Temperature 37.2 C Heart Rate 76 Heart Rate [ 75 Monitoring electrodes] Heart Rate [ 83 Radial] Respiratory 22 18 16 Rate Blood Pressure 114/74 [Left Brachial artery] Blood Pressure 108/71 [Right Brachial artery] O2 Saturation 90 L 95 08/25/21 08/25/21 08/25/21 05:19 07:22 08:29 Temperature 36.6 C 37 C Heart Rate 78 Heart Rate [ Monitoring electrodes] Heart Rate [ 75 75 Radial] Respiratory 16 18 24 Rate Blood Pressure 128/90 H [Left Brachial artery] Blood Pressure 115/91 H [Right Brachial artery] O2 Saturation 95 93 08/25/21 08/25/21 08/25/21 10:55 13:00 15:20 Temperature 37.2 C Heart Rate 76 104 H Heart Rate [ Monitoring electrodes] Heart Rate [ 78 Radial] Respiratory 18 22 22 Rate Blood Pressure [Left Brachial artery] Blood Pressure 110/70 [Right Brachial artery] O2 Saturation 93 08/25/21 15:43 Temperature 36.9 C Heart Rate Heart Rate [ 85 Monitoring electrodes] Heart Rate [ Radial] Respiratory 20 Rate Blood Pressure 114/70 [Left Brachial artery] Blood Pressure [Right Brachial artery] O2 Saturation 92 Oxygen O2 Source Nasal cannula Oxygen Flow Rate 4 - LABS Result Diagrams: 08/25/21 05:45 08/25/21 05:45 - DIAGNOSTIC IMAGING Diagnostic Imaging Results: Final report reviewed Diagnostic Imaging Results Comments: High-resolution CT of the chest revealed trace bilateral pleural effusion with right worse than left and likely bilateral lower lobe infiltrate/atelectasis. There was also subtle reticulonodular thickening in the periphery of bilateral lung cullen with subtle tree-in-bud appearance more prominent in bilateral upper lobes. Findings likely represent distal small airway disease. No pneumothorax. - TIME SPENT Time Spent in Discharge (Minutes): 42"
[2021-08-25 20:55] VITALS: BP 148/90
[2021-08-25] MEDS: ATORVASTATIN 40 MG TABLET PO SCH (20:56)
== END 2021-08-25 21:00 | disposition short-term general hospital (02) | DRG 189 ==
LOC: ED 17:41 → MS3 08-22 22:25
PROVIDERS: ADMIT Internal Medicine; ATTEND Internal Medicine
DX: J96.01 Acute respiratory failure with hypoxia (principal); I21.4 Non-ST elevation (NSTEMI) myocardial infarction; J90 Pleural effusion, not elsewhere classified; J98.11 Atelectasis; Z87.891 Personal history of nicotine dependence; J98.4 Other disorders of lung; I10 Essential (primary) hypertension; G47.30 Sleep apnea, unspecified; E66.9 Obesity, unspecified; Z68.39 Body mass index [BMI] 39.0-39.9, adult; Z82.49 Family history of ischemic heart disease and other diseases of the circulatory system; J44.9 Chronic obstructive pulmonary disease, unspecified; Z20.822 Contact with and (suspected) exposure to COVID-19
CPT/HCPCS: 0202U; 36415; 36600; 71045; 71046; 71250; 78452; 80048; 80053; 80306; 80320; 82803; 83690; 83735; 83880; 84100; 84439; 84443; 84484; 85025; 85610; 85730; 93005; 93017; 93306; 94640; 94664; 96374; 99284; 99285; A9270; A9500; J1650; J2785; 78453

== ENCOUNTER 2021-08-25 21:29 | Outpatient (CLI) | payer OTHER | END 2021-08-25 21:30 | disposition short-term general hospital (02) | LOC: EMS 21:29 | PROVIDERS: ATTEND Specialist | DX: I21.4 Non-ST elevation (NSTEMI) myocardial infarction (principal); R09.02 Hypoxemia | CPT/HCPCS: A0425; A0426 ==

== ENCOUNTER 2021-10-26 10:22 | Outpatient (CLI) | payer OTHER | END 2021-10-26 10:23 | disposition home or self-care (01) | LOC: LAB.N 10:22 | PROVIDERS: ATTEND Physician Assistant Medical | DX: Z71.89 Other specified counseling (principal); Z20.822 Contact with and (suspected) exposure to COVID-19 ==

== ENCOUNTER 2022-03-17 09:30 | Outpatient (CLI) | payer OTHER ==
--- NOTE | 2022-03-17 13:18 | Mammography Report ---
BILATERAL DIGITAL SCREENING MAMMOGRAM 3D/2D: 03/17/2022 CLINICAL: Routine screening. Comparison is made to exams dated: 10/08/2020 mammogram, 09/06/2019 mammogram, 09/03/2018 mammogram, 08/24/2017 mammogram, 10/12/2015 mammogram, and 10/12/2013 mammogram - [facility]. There are scattered fibroglandular elements in both breasts. No significant masses, calcifications, or other findings are seen in either breast. There has been no significant interval change. IMPRESSION: NEGATIVE There is no mammographic evidence of malignancy. A 1 year screening mammogram is recommended. This exam was interpreted at Station ID: [id number]. NOTE: For mammograms, a report in lay terms will be sent to the patient. Approximately 15% of breast malignancies will not be visualized mammographically. In the management of a palpable breast mass, a negative mammogram must not discourage biopsy of a clinically suspicious lesion. Electronically Signed By: Goyo Lopez M.D., jr/ashwini:03/17/2022 10:16:27 ACR BI-RADS Category 1: Negative 3341F PARENCHYMAL PATTERN: (A) - The breast(s) demonstrate(s) scattered fibroglandular densities. BI-RADS CATEGORY: (1) - 1 RECOMMENDATION: (ANNUAL) - Recommend routine annual screening mammography. [id number] 1 year screening LATERALITY: (B)
== END 2022-03-17 09:31 | disposition home or self-care (01) ==
LOC: DI.N 09:30
DX: Z12.31 Encounter for screening mammogram for malignant neoplasm of breast (principal)

== ENCOUNTER 2023-03-30 16:31 | Outpatient (CLI) | payer OTHER ==
--- NOTE | 2023-03-31 09:19 | MRI Report ---
PROCEDURE: LUMBAR SPINE WO INDICATIONS: WEAKNESS, NEUROGENIC CHANGES, DYSPNEA TECHNIQUE: Noncontrast sagittal T1 spin echo and T2 fast echo, sagittal STIR, axial T1 and T2 fast spin echo thr ough the lumbar spine. In cases with scoliosis, additional coronal T2 fast spin echo may be performe d. COMPARISON: None. FINDINGS: Image quality: Excellent. Alignment and Curvature: Trace anterolisthesis of L3 on L4. Bone Marrow: Marrow is of normal overall signal. No acute vertebral body compression fractures. Spinal Cord: Conus medullaris terminates at the L1-L2 level. Visualized cord demonstrates normal si gnal and size. Paraspinous Soft Tissues: No paravertebral masses. T12-L1: Normal in appearance. L1-L2: Facet hypertrophy. No canal stenosis or foraminal stenosis. L2-L3: Minimal disc bulge. Facet hypertrophy. Mild to moderate left foraminal stenosis. L3-L4: Mild chronic disc height loss. Facet hypertrophy. No significant canal stenosis. Mild to mod erate bilateral foraminal stenosis. L4-L5: Severe chronic discogenic loss. Facet hypertrophy. No significant canal stenosis. Mild right and [id number] left foraminal stenosis. L5-S1: Disc space is fused. Mild facet hypertrophy. No significant central canal stenosis. Mild-to- moderate right foraminal narrowing and moderate left foraminal narrowing. IMPRESSION: 1. Multilevel facet arthropathy and multilevel lower lumbar disc space loss. 2. No central canal stenosis. 3. Multilevel foraminal narrowing as described above. Findings include moderate left foraminal narrow ing at L5-S1. Reviewed by: Dev Fernandez MD on 03/31/2023 9:18 AM PDT Approved by: Dev Fernandez MD on 03/31/2023 9:18 AM PDT Station ID: [id number]
--- NOTE | 2023-03-31 10:26 | MRI Report ---
PROCEDURE: CERVICAL SPINE WO INDICATIONS: WEAKNESS, NEUROGENIC CHANGES, DYSPNEA TECHNIQUE: Noncontrast sagittal T1 spin echo and T2 fast spin echo, sagittal STIR, foraminal oblique sagittal T2 fast spin echo, and axial gradient echo or T2 fast spin echo through the cervical spine. COMPARISON: None. FINDINGS: Image quality: Excellent. Alignment and Curvature: There is 3 mm of retrolisthesis of C4 on C5. Bone Marrow: Marrow demonstrates normal overall signal. There is mild reactive signal throughout th e endplates of the cervical and upper thoracic spine. Spinal Cord: Visualized spinal cord has normal size and signal. No cerebellar tonsillar herniation. Paraspinous Soft Tissues: No paravertebral masses. Prevertebral soft tissues are normal in thicknes s. C2-C3: Mild disc height loss and desiccation. No significant canal nor foraminal stenosis. C3-C4: Mild disc height loss and desiccation. Mild diffuse disc bulge. Mild facet and uncovertebral hypertrophy. Mild canal stenosis. Mild bilateral foraminal stenosis. C4-C5: Mild disc desiccation and diffuse disc bulge. Mild facet and uncovertebral hypertrophy. Mild canal stenosis. Mild bilateral foraminal stenosis. C5-C6: Moderate disc desiccation. Mild diffuse disc bulge. Mild facet and uncovertebral hypertrophy bilaterally. Mild canal stenosis. Mild left greater than right foraminal stenosis. C6-C7: Moderate disc height loss and desiccation. Mild diffuse disc bulge. Mild facet and uncoverteb ral hypertrophy bilaterally. Mild canal stenosis. Moderate bilateral foraminal stenosis. C7-T1: Mild disc height loss and desiccation. Mild bilateral facet and uncovertebral hypertrophy. Mi ld canal stenosis. Mild bilateral foraminal stenosis. IMPRESSION: 1. Multilevel degenerative disc and facet disease, as well as uncovertebral hypertrophy. 2. Mild multilevel canal stenoses. 3. Multilevel foraminal stenoses, worst at C6-C7 where there are moderate foraminal stenoses. Reviewed by: Carlos Bowles MD on 03/31/2023 9:24 AM [place] Approved by: Carlos Bowles MD on 03/31/2023 9:24 AM [place] Station ID: [id number]
--- NOTE | 2023-03-31 10:35 | MRI Report ---
PROCEDURE: THORACIC SPINE WO INDICATIONS: WEAKNESS, NEUROGENIC CHANGES, DYSPNEA TECHNIQUE: Noncontrast sagittal T1 spine echo and T2 fast spin echo, sagittal STIR, axial T1 and T2 fast spin ec ho through the thoracic spine. COMPARISON: Cervical spine and lumbar spine MRI from the same date. FINDINGS: Image quality: Excellent. Alignment and Curvature: There is normal bony alignment. Bone Marrow: Marrow is of normal overall signal. No acute vertebral body compression fractures. Mi ld chronic anterior vertebral body height loss of T5, T6, T7, T8, and T9 results in increased thoraci c kyphosis Spinal Cord: Visualized spinal cord is normal in size and signal. Paraspinous Soft Tissues: No paravertebral masses. Miscellaneous: On axial images, central canal and foramina appear widely patent at all scanned level s. IMPRESSION: 1. No canal stenosis or foraminal stenosis. Normal appearance of thoracic cord. 2. Anterior wedging of multiple contiguous thoracic vertebral bodies results in increased thoracic ky phosis. Comment: Consider DEXA bone densitometry evaluate the level of bone mineralization in this patient. Reviewed by: Dev Fernandez MD on 03/31/2023 10:34 AM PDT Approved by: Dev Fernandez MD on 03/31/2023 10:34 AM PDT Station ID: [id number]
== END 2023-03-30 16:32 | disposition home or self-care (01) ==
LOC: DI 16:31
PROVIDERS: ATTEND Psychiatry & Neurology Neurology
DX: R53.1 Weakness (principal); R06.00 Dyspnea, unspecified; M50.31 Other cervical disc degeneration, high cervical region; M48.02 Spinal stenosis, cervical region; M47.812 Spondylosis without myelopathy or radiculopathy, cervical region; M47.816 Spondylosis without myelopathy or radiculopathy, lumbar region; M48.061 Spinal stenosis, lumbar region without neurogenic claudication; M48.07 Spinal stenosis, lumbosacral region

== ENCOUNTER 2023-09-16 07:40 | Outpatient (CLI) | payer OTHER ==
[2023-09-16 12:16] LABS: ESTIMATED AVERAGE GLUCOSE 123 mg/dL (70-100); HEMOGLOBIN A1c% 5.9 % (4.27-6.07)
[2023-09-16 12:25] LABS: BASOPHILS % (AUTO) 0.5 %; EOSINOPHILS # (AUTO) 0.1 10^3/uL (0.0-0.7); EOSINOPHILS % (AUTO) 0.9 %; HCT - HEMATOCRIT 50.1 % (37.0-47.0); HGB - HEMOGLOBIN 15.1 g/dL (12.0-16.0); LYMPHOCYTES # (AUTO) 1.3 10^3/uL (1.5-3.5); LYMPHOCYTES % (AUTO) 23.3 %; MEAN CORPUSCULAR HEMOGLOBIN 29.3 pg (27.0-31.0); MEAN CORPUSCULAR HGB CONC 30.1 g/dL (32.0-36.0); MEAN CORPUSCULAR VOLUME 97.1 fL (81.0-99.0); MEAN PLATELET VOLUME 10.1 fL (7.9-10.8); MONOCYTES # (AUTO) 0.3 10^3/uL (0.0-1.0); MONOCYTES % (AUTO) 6.1 %; NEUTROPHILS # (AUTO) 3.8 10^3/uL (1.5-6.6); PLT - PLATELET COUNT 235 10^3/uL (130-450); RED BLOOD COUNT 5.16 10^6/uL (4.20-5.40); RED CELL DISTRIBUTION WIDTH 14.2 % (12.0-15.0); WHITE BLOOD COUNT 5.5 x10^3/uL (4.8-10.8)
[2023-09-16 12:39] LABS: ALBUMIN 4.3 g/dL (3.2-5.5); CHOL/HDL RATIO 2.5 (<4.4); CHOLESTEROL 174 mg/dL; HDL CHOLESTEROL 70 mg/dL; LDL CHOLESTEROL,CALCULATED 95 mg/dL; LDL/HDL RATIO 1.4 (<4.4); TRIGLYCERIDES 47 mg/dL (48-352); VLDL CHOLESTEROL 9 mg/dL
[2023-09-16 12:47] LABS: THYROID STIMULATING HORMONE 2.39 uIU/mL (0.34-5.60)
[2023-09-16 13:43] LABS: ALBUMIN/GLOBULIN RATIO 1.5 (1.0-2.2); ALKALINE PHOSPHATASE 100 IU/L (42-121); ALT ALANINE AMINOTRANSFERASE 14 IU/L (10-60); AST ASPARTATE AMINOTRANSFERASE 18 IU/L (10-42); BILIRUBIN,TOTAL 0.5 mg/dL (0.2-1.0); BUN - BLOOD UREA NITROGEN 10 mg/dL (6-20); CALCIUM 9.8 mg/dL (8.5-10.3); CARBON DIOXIDE - CO2 39 mmol/L (21-32); CHLORIDE 97 mmol/L (101-111); CREATININE 0.5 mg/dL (0.6-1.3); GFR - MDRD 126 (>89); GLUCOSE 96 mg/dL (74-104); POTASSIUM 4.8 mmol/L (3.5-4.5); SODIUM 138 mmol/L (135-145); TOTAL PROTEIN 7.2 g/dL (6.4-8.9)
== END 2023-09-16 07:41 | disposition home or self-care (01) ==
LOC: LAB.N 07:40
PROVIDERS: ATTEND Family Medicine
DX: Z00.00 Encounter for general adult medical examination without abnormal findings (principal); I10 Essential (primary) hypertension; R73.9 Hyperglycemia, unspecified; R20.2 Paresthesia of skin
CPT/HCPCS: 36415; 80053; 80061; 83036; 83721; 84443; 85025

== ENCOUNTER 2023-11-16 13:27 | Outpatient (CLI) | payer OTHER ==
--- NOTE | 2023-11-16 15:51 | DEXA Report ---
PROCEDURE: Dexa Spine and/or Hip INDICATIONS: POST MENOPAUSAL TECHNIQUE: Dual energy x-ray absorptiometry (DXA) was performed on a [employer] System. Regions measur ed are the AP Spine, femoral neck, and if needed forearm. COMPARISON: None. FINDINGS: Lumbar Spine: Bone Mineral Density 1.394 g/cm/cm,T score 1.8. Normal Left Femoral Neck: Bone Mineral Density 0.921 g/cm/cm, T score -0.8. Left Hip: Bone Mineral Density 0.930 g/cm/cm,T score -0.6. Normal (T score greater or equal to -1.0: NORMAL) (T score from -1.1 to -2.4: OSTEOPENIA) (T score less than or equal to -2.5 to: OSTEOPOROSIS) Impression: By WHO criteria, this patient has normal bone density. Patients with diagnosis of osteoporosis or osteopenia should have regular bone mineral density assess ment. For those eligible for Medicare, routine testing is allowed once every 2 years. Testing frequ ency can be increased for patients who have rapidly progressing disease or for those who are receivin g medical therapy to restore bone mass. Reviewed by: Grant Smalls MD on 11/16/2023 3:49 PM PST Approved by: Grant Smalls MD on 11/16/2023 3:49 PM PST Station ID: [id number]
== END 2023-11-16 13:28 | disposition home or self-care (01) ==
LOC: DI 13:27
PROVIDERS: ATTEND Physician Assistant Medical
DX: Z78.0 Asymptomatic menopausal state (principal)

== ENCOUNTER 2023-11-16 13:29 | Outpatient (CLI) | payer OTHER ==
--- NOTE | 2023-11-17 10:41 | Mammography Report ---
BILATERAL DIGITAL SCREENING MAMMOGRAM 3D/2D WITH EXAGGERATED CC: 11/16/2023 CLINICAL: Routine screening. Comparison is made to exams dated: 03/17/2022 mammogram, 10/08/2020 mammogram, 09/06/2019 mammogram, mammogram, 08/24/2017 mammogram, and 10/12/2015 mammogram - [facility]. There are scattered areas of fibroglandular density in both breasts (category b / 25%-50% glandular t issue). No significant masses, calcifications, or other findings are seen in either breast. There has been no significant interval change. IMPRESSION: NEGATIVE There is no mammographic evidence of malignancy. A 1 year screening mammogram is recommended. Based on the Tyrer Cuzick model (a risk assessment model) the patients lifetime risk is 5.9% and her 10 year risk is 2.4%. According to the ACR, ACS, and NCCN guidelines, an annual breast MRI exam levi g with mammogram is recommended if the patients lifetime risk is 20% or greater. This exam was interpreted at Station ID: [id number]. NOTE: For mammograms, a report in lay terms will be sent to the patient. Approximately 15% of breast malignancies will not be visualized mammographically. In the management of a palpable breast mass, a negative mammogram must not discourage biopsy of a clinically suspicious lesion. Electronically Signed By: Alivia prado/ashwini:11/16/2023 16:39:56 letter sent: No_Letter ACR BI-RADS Category 1: Negative 3341F PARENCHYMAL PATTERN: (A) - The breast(s) demonstrate(s) scattered fibroglandular densities. BI-RADS CATEGORY: (1) - 1 Mammogram [id number] 1 year screening LATERALITY: (B)
== END 2023-11-16 13:30 | disposition home or self-care (01) ==
LOC: DI 13:29
DX: Z12.31 Encounter for screening mammogram for malignant neoplasm of breast (principal); R92.323 Mammographic fibroglandular density, bilateral breasts